=== PATIENT | female | born 1945 | race Caucasian/White ===

== ENCOUNTER 2020-12-19 15:27 | Emergency (ER) | payer MEDICARE ==
[~2020-12-19] VITALS: Ht 157.5 cm; Wt 84.8 kg
[~2020-12-19 15:27] MED LIST: CHOL10002; CLOB.05TC; OXYB5ER PO; SOLI5; VARE1
[2020-12-19] MEDS ORDERED: ELIQUIS5 M3 PO (15:38)
[2020-12-19] MEDS ORDERED: K-Dur10 MEQ PO (15:38)
[2020-12-19] MEDS ORDERED: FUROSEMIDE20 MG PO (15:38)
[2020-12-19 16:00] LABS: BASOPHILS ABSOLUTE AUTO 0.13 K/mm3 (0.00-0.23); BASOPHILS PERCENT AUTO 1 % (0-2); EOSINOPHILS ABSOLUTE AUTO 0.26 K/mm3 (0.00-0.68); EOSINOPHILS PERCENT AUTO 2 % (0-6); Hematocrit 38.2 % (33.0-51.0); Hemoglobin 11.6 g/dL (11.5-16.0); IMMATURE GRAN ABSOLUTE AUTO 0.04 K/mm3 (0.00-0.10); IMMATURE GRAN PERCENT AUTO 0 % (0-1); LYMPHOCYTES ABSOLUTE AUTO 1.62 K/mm3 (0.84-5.20); LYMPHOCYTES PERCENT AUTO 15 % (21-46); MONOCYTES ABSOLUTE AUTO 0.85 K/mm3 (0.16-1.47); MONOCYTES PERCENT AUTO 8 % (4-13); Mean Corpuscular HGB 23.8 pg (26.0-34.0); Mean Corpuscular HGB Conc 30.4 g/dL (31.5-36.5); Mean Corpuscular Volume 78 fL (80-100); Mean Platelet Volume 10.9 fL (9.1-12.4); NEUTROPHILS ABSOLUTE AUTO 7.88 K/mm3 (1.96-9.15); NEUTROPHILS PERCENT AUTO 73 % (41-73); Platelet Count 447 K/mm3 (150-400); RDW Coefficient Variation 15.8 % (11.7-14.2); RDW Standard Deviation 44.7 fL (35.1-46.3); Red Blood Cell Count 4.88 M/mm3 (3.80-5.20); White Blood Cell Count 10.78 K/mm3 (4.00-11.30)
[2020-12-19 16:17] LABS: Alanine Aminotransfer (ALT/SGP 19 U/L (12-78); Albumin, Blood 3.3 g/dL (3.4-5.0); Albumin/Globulin Ratio 0.8 (0.8-1.8); Alk Phos 80 U/L (50-136); Anion Gap 9 mmol/L (6-16); Aspartate Aminotrans (AST/SGOT 19 U/L (12-37); Bilirubin, Total 1.2 mg/dL (0.1-1.0); Blood Urea Nitrogen 15 mg/dL (8-24); Bun/Creatinine Ratio 17.6 (12.0-20.0); CO2, Blood 29 mmol/L (21-32); Calcium, Blood 9.2 mg/dL (8.5-10.1); Chloride, Blood 103 mmol/L (98-108); Creatinine, Blood 0.85 mg/dL (0.40-1.00); Globulin, Blood 3.9 g/dL (2.2-4.0); Glomerular Filtration Rate >60 (60-); Glucose, Blood 111 mg/dL (70-99); Potassium, Blood 3.5 mmol/L (3.5-5.5); Sodium, Blood 141 mmol/L (136-145); Total Protein, Blood 7.2 g/dL (6.4-8.2); Troponin I 0.384 ng/mL (0.000-0.040)
== END 2020-12-19 21:00 | disposition short-term general hospital (02) ==
LOC: ER 15:27
PROVIDERS: Physician Assistant
DX: I35.0 Nonrheumatic aortic (valve) stenosis (principal); I50.9 Heart failure, unspecified; I26.99 Other pulmonary embolism without acute cor pulmonale; R79.89 Other specified abnormal findings of blood chemistry; Z79.01 Long term (current) use of anticoagulants; Z79.899 Other long term (current) drug therapy; I26.94 Multiple subsegmental thrombotic pulmonary emboli without acute cor pulmonale; R06.02 Shortness of breath; I27.20 Pulmonary hypertension, unspecified; R93.1 Abnormal findings on diagnostic imaging of heart and coronary circulation
CPT/HCPCS: 71046; 80053; 83880; 84484; 85025; 93005; 93010; 96374; 99285-25; A9270; C8929; J1940; Q9957

== ENCOUNTER 2021-01-07 15:47 | Inpatient (IN) | payer MEDICARE ==
[~2021-01-07] VITALS: Ht 157.5 cm; Wt 86.7 kg
[~2021-01-07 15:47] MED LIST changes: +ELIQUIS5 M3 PO; +FUROSEMIDE20 MG PO; +K-Dur10 MEQ PO
[2021-01-07 16:30] LABS: BASOPHILS ABSOLUTE AUTO 0.16 K/mm3 (0.00-0.23); BASOPHILS PERCENT AUTO 1 % (0-2); EOSINOPHILS ABSOLUTE AUTO 0.37 K/mm3 (0.00-0.68); EOSINOPHILS PERCENT AUTO 3 % (0-6); Hematocrit 39.5 % (33.0-51.0); Hemoglobin 11.9 g/dL (11.5-16.0); IMMATURE GRAN ABSOLUTE AUTO 0.07 K/mm3 (0.00-0.10); IMMATURE GRAN PERCENT AUTO 1 % (0-1); LYMPHOCYTES ABSOLUTE AUTO 1.42 K/mm3 (0.84-5.20); LYMPHOCYTES PERCENT AUTO 10 % (21-46); MONOCYTES ABSOLUTE AUTO 1.22 K/mm3 (0.16-1.47); MONOCYTES PERCENT AUTO 9 % (4-13); Mean Corpuscular HGB 23.4 pg (26.0-34.0); Mean Corpuscular HGB Conc 30.1 g/dL (31.5-36.5); Mean Corpuscular Volume 78 fL (80-100); Mean Platelet Volume 10.7 fL (9.1-12.4); NEUTROPHILS ABSOLUTE AUTO 11.16 K/mm3 (1.96-9.15); NEUTROPHILS PERCENT AUTO 77 % (41-73); Platelet Count 447 K/mm3 (150-400); RDW Coefficient Variation 16.1 % (11.7-14.2); RDW Standard Deviation 45.2 fL (35.1-46.3); Red Blood Cell Count 5.09 M/mm3 (3.80-5.20)
[2021-01-07 17:00] LABS: Albumin, Blood 3.3 g/dL (3.4-5.0); Albumin/Globulin Ratio 0.8 (0.8-1.8); Bilirubin, Total 1.5 mg/dL (0.1-1.0); Bun/Creatinine Ratio 25.5 (12.0-20.0); Calcium, Blood 9.5 mg/dL (8.5-10.1); Creatinine, Blood 1.06 mg/dL (0.40-1.00); Globulin, Blood 4.1 g/dL (2.2-4.0); Potassium, Blood 3.8 mmol/L (3.5-5.5); Total Protein, Blood 7.4 g/dL (6.4-8.2); Troponin I 0.265 ng/mL (0.000-0.040)
[2021-01-07] MEDS ORDERED: METOPROLOL TART25 MG PO (17:34)
[2021-01-07] MEDS ORDERED: ATOR40TA PO (17:34)
[2021-01-07 19:03] LABS: Influenza A, PCR NEGATIVE (NEGATIVE); Influenza B, PCR NEGATIVE (NEGATIVE); Resp Syncytial Virus, PCR NEGATIVE (NEGATIVE); SARS-Cov-2 (COVID-19) PCR, MMC NEGATIVE (NEGATIVE)
[2021-01-07] MEDS ORDERED: Aspir 8181 MG PO (23:35)
[2021-01-07] MEDS ORDERED: THERA-D2000 UNIT PO (23:36)
[2021-01-08 03:10] LABS: BASOPHILS ABSOLUTE AUTO 0.16 K/mm3 (0.00-0.23); BASOPHILS PERCENT AUTO 1 % (0-2); EOSINOPHILS ABSOLUTE AUTO 0.48 K/mm3 (0.00-0.68); EOSINOPHILS PERCENT AUTO 3 % (0-6); Hematocrit 36.2 % (33.0-51.0); Hemoglobin 11.2 g/dL (11.5-16.0); IMMATURE GRAN ABSOLUTE AUTO 0.07 K/mm3 (0.00-0.10); IMMATURE GRAN PERCENT AUTO 0 % (0-1); LYMPHOCYTES ABSOLUTE AUTO 1.85 K/mm3 (0.84-5.20); LYMPHOCYTES PERCENT AUTO 12 % (21-46); MONOCYTES ABSOLUTE AUTO 1.44 K/mm3 (0.16-1.47); MONOCYTES PERCENT AUTO 9 % (4-13); Mean Corpuscular HGB 23.7 pg (26.0-34.0); Mean Corpuscular HGB Conc 30.9 g/dL (31.5-36.5); Mean Corpuscular Volume 77 fL (80-100); Mean Platelet Volume 10.6 fL (9.1-12.4); NEUTROPHILS ABSOLUTE AUTO 12.03 K/mm3 (1.96-9.15); NEUTROPHILS PERCENT AUTO 75 % (41-73); Platelet Count 401 K/mm3 (150-400); RDW Coefficient Variation 16.1 % (11.7-14.2); RDW Standard Deviation 44.4 fL (35.1-46.3); Red Blood Cell Count 4.73 M/mm3 (3.80-5.20); White Blood Cell Count 16.03 K/mm3 (4.00-11.30)
[2021-01-08 03:29] LABS: Bun/Creatinine Ratio 25.1 (12.0-20.0); Potassium, Blood 3.5 mmol/L (3.5-5.5); Troponin I 0.283 ng/mL (0.000-0.040)
--- NOTE | 2021-01-08 06:10 | NUR ---
SHIFT SUMMARY PT DID NOT SLEEP WELL, REPORTS DISCOMFORT WITH BIPAP R/T DRY MOUTH AND REQUIRES FREQUENT BREAKS FOR SIPS OF WATER. PT REMAINS ORIENTED x4. BIPAP 10/7 FIO2 45%, REQUESTED BREAK FROM BIPAP THIS AM AND IS CURRENTLY ON 6L PER NC, WOB DECREASED AND PT APPEARS RELAXED AND COMFORTABLE ON NC. MONITOR SHOWS SINUS RHYTHM WITH BBB, HR 90'S-105, BP SOFT WITH MAPS> 60. PT TOLERATING PO INTAKE, NO BM THIS SHIFT. FOELY IN PLACE DRAINING CLEAR YELLOW URINE. CALL LIGHT WITHIN REACH, PT USING APPROPRIATELY.
--- NOTE | 2021-01-08 07:30 | NUR ---
IN TO SEE PATIENT, PATIENT ALERT, ORIENTED, CONVERSING WELL WITH ANSWERING ALL QUESTIONS, WORKING HARD AT BREATHING. BLOOD PRESSURE SOFT. LASIX GTT ON STANDBY PER . COMPRESSION STOCKINGS ON LOWER LEGS, 2+ EDEMA, PT UNDERSTANDS THE WORDS EXPLAINING TO HER. STATES THAT HER NEEDS TO HEAR THIS AND WILL CALL HIM WHEN THINGS ARE FINALIZED. CHONG DRAINING TO GRAVITY, NS AT KVO.
[2021-01-08 09:08] LABS: International Normalized Ratio 1.36; Prothrombin Time Results 14.3 Sec (9.7-11.5)
--- NOTE | 2021-01-08 09:30 | NUR ---
HEPARIN GTT SET UP AND STARTED PER PHARMACY AFTER BLOOD DRAW AND CONFIGURATION. PT ON BIPAP, TRYING TO REST. PT UNDERSTANDS THAT SHE WILL BE MOVING TO ANOTHER FACILITY WHEN THE BED BECOMES AVAILABLE. AND SON AWARE AND ARE COMING TO SEE THE PATIENT. OK'D PER SUPERVISORS.
--- NOTE | 2021-01-08 10:50 | NUR ---
AND SON HERE TO SEE PATIENT PRIOR TO TRANSFER, PT OFF BIPAP TO TALK WITH THEM, ON O2 @ 6L. TOLERATING WELL. QUESTIONS ANSWERED.
[2021-01-08 11:33] LABS: Source, Urine Clean Catch
[2021-01-08 11:41] LABS: Bilirubin, Urine Neg (Neg); Blood, Urine 5+ (Neg); Glucose Qualitative, Urine Neg (Neg); Ketones, Urine Neg (Neg); Leukocyte Esterase, Urine 3+ (Neg); Nitrite, Urine Neg (Neg); Protein, Urine 2+ (Neg); Specific Gravity, Urine 1.015 (1.003-1.022); Urobilinogen, Urine NORM (Normal)
[2021-01-08 11:48] LABS: Appearance, Urine Cloudy (Clear); Bacteria Mod /hpf; Color, Urine Yellow (P-Yellow); Granular Casts 0-2 /lpf (0); Hyaline Casts 0-2 /lpf (0-2); Mucus Light (0-Heavy); Red Blood Cells, Urine 50-100 /hpf (0-2); Squamous Epithelial Cells Few /hpf (Few); White Blood Cells, Urine 50-100 /hpf (0-5)
--- NOTE | 2021-01-08 12:12 | NUR ---
SON AIDEN JUST CALLED AND ASKED ABOUT TRANSFERRING HIS MOTHER TO [facility], HE FEELS THAT JUST "SITTING HERE WAITING FOR A BED IS RIDICULOUS" AND HIS MOTHERS'S SISTER WAS TAKEN TO [facility] AND HAD A LIFE SAVING PROCEDURE. I LET HIM KNOW THAT IT WAS 'S DECISION TO SEND HER AND CONNECT WITH THE PROVIDERS THERE IN [facility]. HE ASKED TO SPEAK WITH HER. HER OFFICE NUMBER WAS GIVEN TO HIM.
--- NOTE | 2021-01-08 13:37 | NUR ---
TALKING WITH HANNY IN REGARDS TO HER SON'S REQUEST. SHE IS NOT WANTING TO GO "ALL THE WAY" TO [place], TO HAVE TO REDO ALL HER TESTS, HAVE NEW PEOPLE GET TO KNOW HER, ETC. SHE CALLED HER SON TO EXPRESS THIS AND HE PROMPTLY CALLED ME UPSET THAT HIS MOTHER KNEW WHAT WAS GOING ON. I EXPLAINED THAT HAD CALLED AND ASKED ME ABOUT THE SITUATION AND WHAT HANNY'S THOUGHTS WERE. HE THEN EXPRESSED FURTHER FRUSTRATION THAT WE ARE SITTING ON A TIME BOMB AND HER LIFE DEPENDS ON IT. I TRIED TO EXPLAIN HOW THE TRANSFER PROCESS WORKS AND THAT WE ARE WORKING HARD ON GETTING HER TRANSFERRED OUT FOR TREATMENT, BUT WE CANNOT DO ANYTHING ABOUT FULL HOSPITALS. HE THEN ABRUPTLY HUNG UP WAS CALLING HIM BACK.
--- NOTE | 2021-01-08 18:37 | NUR ---
HANNY IS FINALLY SLEEPING, ON BIPAP AT 10/5 30%. SHE HAS SPLIT HER DAY BETWEEN THIS AND 6L/NC. SHE IS TIRING MORE QUICKLY AND STRUGGLING FOR EACH BREATH. HER SBP IS HOVERING IN THE HI 70'S-90'S. MAP IS STAYING >60, AND DR. MOE AWARE, WANT TO BE MADE AWARE IF THE MAP CONSISTENTLY DROPS BELOW 60. DR. HALL STATED THAT SHE GOT A CONFIRMATION THAT A ROOM WOULD BE AVAILABLE IN 24 HOURS, 48 HOURS MAX. THE OPTION OF GOING TO [facility] IS STILL ON THE TABLE, BUT THEY ARE FULL WELL. DR. HALL HAS COMMUNICATED THIS WITH THE FAMILY AND THEY WILL LET HER KNOW IF THEY CHOOSE TO CHANGE THE PLAN. HANNY CONTINUES TO BE VERY PLEASANT ALTHOUGH SHORT OF BREATH. SHE HAS DARK YELLOW/MARTHA RETURN TO HER CHONG, FAIR APPETITE. SHE ASKED FOR SOUP AND HALF SANDWICH AT LUNCH, ATE WELL AND THEN ASKED FOR BROTH FOR DINNER. SHE HAS ASKED FOR LITTLE POSITION CHANGE THROUGHOUT THE DAY, I HAVE DISCUSSED WITH HER THAT WE NEED TO TRY LITTLE THINGS TO KEEP HER OFF HER BUTT, SITTING UP IS HER PREFERRED POSITION. COMPRESSION STOCKINGS REMAIN IN PLACE. HER RASHES OVER HER PANNUS AND UNDER HER BREASTS REMAIN TENDER AND UNCHANGED AFTER BOTH DOSES OF MEDICATION. WILL REPORT OFF TO NEXT SHIFT WHEN AVAILABLE.
--- NOTE | 2021-01-08 20:40 | NUR ---
ASSUMPTION OF CARE PT AWAKE IN BED, ORIENTED TO SELF, EVENT, LOCATION AND FOLLOWING COMMANDS, PT UNDERSTANDS PLAN TO TRANSFER TO [facility] IN [place], OR. PT ON BREAK FROM BIPAP ON 6L PER NC, BIPAP SETTINGS 10/5 AND 30% FIO2, ENCOURAGED PT TO USE BIPAP MUCH TOLERATED, PT VERBALIZES UNDERSTANDING OF NEED FOR BIPAP, BREATHING IS UNLABORED AT THIS TIME, DYSPNEA NOTED WITH MINIMAL EXERTION. MONITOR SHOWS SINUS RHYTHM WITH PVC'S, HR 90'S-110, BP STABLE WITH SBP> 100 AND MAPS> 65. HPEARIN INFUSING @ 15u/kg/hr, BASED ON 65kg, HEPARIN MANAGING. REDDENED AREA TO BIALT BREAST AND ASTER AREA IMPROVING IN SOME PLACES, NYSTATIN CREAM APPLIED ORDERED. PT DENIES GI ISSUES, TOLERATING PO INTAKE. CHONG IN PLACE AND DRAINING DARK YELLOW URINE WITH RED STREAKS. PT REPOSITIONS SELF, FAN PLACED AT BEDSIDE. CALL LIGHT WITHIN REACH, PT USING APPROPRIATELY.
--- NOTE | 2021-01-08 22:52 | NUR ---
REPORT CALLED TO GINA ZARAGOZA AT [facility]
--- NOTE | 2021-01-08 23:13 | NUR ---
REPORT GIVEN TO JENNIFER MARTINES ATMOSPHERIC CHEMIST, PT LEFT ICU @ 9321
== END 2021-01-08 23:16 | disposition short-term general hospital (02) | DRG 291 ==
LOC: ER 15:47 → ICUW 19:00 → ERHOLD 19:00 → ICUW 22:15
PROVIDERS: Emergency Medicine; Internal Medicine Cardiovascular Disease; Nurse Practitioner Acute Care; Pharmacist; Physician Assistant; ADMIT Internal Medicine
DX: I50.21 Acute systolic (congestive) heart failure (principal); J96.91 Respiratory failure, unspecified with hypoxia; I27.82 Chronic pulmonary embolism; Z79.01 Long term (current) use of anticoagulants; J44.9 Chronic obstructive pulmonary disease, unspecified; E78.5 Hyperlipidemia, unspecified; Z87.891 Personal history of nicotine dependence; Z99.81 Dependence on supplemental oxygen
CPT/HCPCS: 0241U; 36415; 51702; 71046; 80048; 80053; 81001; 83605; 83880; 84484; 85025; 85610; 85730; 87040; 93005; 93010; 94660; 96374; 99285-25; A9270; J1644; J1940; J3475; J7050

== ENCOUNTER 2021-02-06 06:00 | Day surgery (SDC) | payer MEDICARE, OTHER ==
[~2021-02-06 06:00] MED LIST changes: +ATOR40TA PO; +Aspir 8181 MG PO; +METOPROLOL TART25 MG PO; +THERA-D2000 UNIT PO
[2021-02-06] MEDS ORDERED: METOPROLOL SUCC25 MG PO (08:07)
--- NOTE | 2021-02-06 08:10 | NUR ---
THREE SEPERATE 200J SYNCHRONIZED SHOCKS DELIVERED BY DR HALL; UNABLE TO CARDIOVERT PT TO SUSTAINED NORMAL SINUS RHYTHM. PT TOLERATED WELL. MILA KEEN WAS IN ROOM DURING CARDIOVERSION.
[2021-02-06] MEDS ORDERED: AMIODARONE HCL100 M3 PO (08:35)
--- NOTE | 2021-02-06 09:41 | NUR ---
DISCHARGE INSTRUCTIONS WERE REVIEWED AND ALL QUESTIONS ANSWERED. 20 G IV WAS REMOVED FROM LEFT WRIST WITH INTACT CANNULA. PT AMBULATED TO BR TO VOID. PT ESCORTED OUT VIA WHEELCHAIR ESCORT.
== END 2021-02-06 22:44 | disposition home or self-care (01) ==
LOC: MHTC 06:00
DX: I48.91 Unspecified atrial fibrillation (principal); I48.92 Unspecified atrial flutter; E78.5 Hyperlipidemia, unspecified; J44.9 Chronic obstructive pulmonary disease, unspecified; I50.22 Chronic systolic (congestive) heart failure; I25.10 Atherosclerotic heart disease of native coronary artery without angina pectoris; Z66 Do not resuscitate; Z87.891 Personal history of nicotine dependence; Z79.01 Long term (current) use of anticoagulants
CPT/HCPCS: 92960; 93005; 93010; 99152; J2250; J2310; J3010; J7030

== ENCOUNTER 2021-03-28 18:34 | Observation (INO) | payer MEDICARE, OTHER ==
[~2021-03-28] VITALS: Ht 157.5 cm; Wt 83.0 kg
[~2021-03-28 18:34] MED LIST changes: +AMIODARONE HCL100 M3 PO; +METOPROLOL SUCC25 MG PO
[2021-03-28 19:06] LABS: BASOPHILS ABSOLUTE AUTO 0.08 K/mm3 (0.00-0.23); BASOPHILS PERCENT AUTO 1 % (0-2); EOSINOPHILS ABSOLUTE AUTO 0.19 K/mm3 (0.00-0.68); EOSINOPHILS PERCENT AUTO 2 % (0-6); Hematocrit 39.9 % (33.0-51.0); Hemoglobin 12.9 g/dL (11.5-16.0); IMMATURE GRAN ABSOLUTE AUTO 0.05 K/mm3 (0.00-0.10); IMMATURE GRAN PERCENT AUTO 1 % (0-1); LYMPHOCYTES ABSOLUTE AUTO 0.62 K/mm3 (0.84-5.20); LYMPHOCYTES PERCENT AUTO 6 % (21-46); MONOCYTES ABSOLUTE AUTO 0.97 K/mm3 (0.16-1.47); MONOCYTES PERCENT AUTO 10 % (4-13); Mean Corpuscular HGB 25.3 pg (26.0-34.0); Mean Corpuscular HGB Conc 32.3 g/dL (31.5-36.5); Mean Corpuscular Volume 78 fL (80-100); Mean Platelet Volume 10.2 fL (9.1-12.4); NEUTROPHILS ABSOLUTE AUTO 8.21 K/mm3 (1.96-9.15); NEUTROPHILS PERCENT AUTO 81 % (41-73); Platelet Count 242 K/mm3 (150-400); RDW Coefficient Variation 19.3 % (11.7-14.2); RDW Standard Deviation 54.7 fL (35.1-46.3); White Blood Cell Count 10.12 K/mm3 (4.00-11.30)
[2021-03-28 19:34] LABS: Alanine Aminotransfer (ALT/SGP 26 U/L (12-78); Albumin, Blood 3.2 g/dL (3.4-5.0); Albumin/Globulin Ratio 0.7 (0.8-1.8); Alk Phos 97 U/L (50-136); Anion Gap 4 mmol/L (6-16); Aspartate Aminotrans (AST/SGOT 38 U/L (12-37); Blood Urea Nitrogen 17 mg/dL (8-24); Bun/Creatinine Ratio 19.5 (12.0-20.0); CO2, Blood 27 mmol/L (21-32); Chloride, Blood 103 mmol/L (98-108); Creatinine, Blood 0.87 mg/dL (0.40-1.00); Globulin, Blood 4.3 g/dL (2.2-4.0); Glomerular Filtration Rate >60 (60-); Glucose, Blood 104 mg/dL (70-99); Potassium, Blood 4.1 mmol/L (3.5-5.5); Sodium, Blood 134 mmol/L (136-145); Total Protein, Blood 7.5 g/dL (6.4-8.2); Troponin I 0.142 ng/mL (0.000-0.040)
[2021-03-28] MEDS ORDERED: CARVEDILOL6.25 MG PO (21:25)
[2021-03-28] MEDS ORDERED: WOMEN MULTIVIT1 EAC1 PO (21:38)
[2021-03-28 22:17] LABS: Bilirubin, Urine Neg (Neg); Blood, Urine 5+ (Neg); Glucose Qualitative, Urine Neg (Neg); Ketones, Urine Neg (Neg); Leukocyte Esterase, Urine 1+ (Neg); Nitrite, Urine Neg (Neg); Protein, Urine 2+ (Neg); Urobilinogen, Urine NORM (Normal)
[2021-03-28 22:19] LABS: Appearance, Urine Hazy (Clear); Color, Urine Yellow (P-Yellow)
[2021-03-28 22:34] LABS: Amorphous Light (0-Heavy); Bacteria Rare /hpf; Red Blood Cells, Urine TNTC /hpf (0-2); Squamous Epithelial Cells Rare /hpf (Few)
--- NOTE | 2021-03-29 03:47 | NUR ---
SHIFT SUMMARY RECIEVED REPORT FROM CAMI RN, ED @ 7251. ARRIVED TO MEDICAL UNIT VIA STRETCHER @ 0669. MINIMAL ASSISTANCE REQUIRED WITH TRANSFER TO BED FROM [facility]. ORIENTED TO ROOM AND CALL SYSTEM. A/O, ABLE TO MAKE NEEDS KNOWN. COOPERATIVE WITH CARE. CALLS AND ANSWERS QUESTIONS APPROPRIATELY. NO C/O PAIN/DISCOMFORT. RESPIRATIONS TACHYPNEIC WITH PURSED LIP BREATHING AT TIMES. WHEN ASKED IF SOB; STATES NO. WEARS ATTENDS; STATES NO INCONTINENCE. HAS BEEN UP TO BSC FREQUENTLY SINCE ARRIVAL. TELE RUNNING AFLUTTER IN 80s PER CRM ARCHITECT. APPEARED TO REST VERY LITTLE SINCE ARRIVAL. NO ACUTE CHANGES NOTED SINCE ARRIVAL. BED REMAINS IN LOWEST POSITION; ALARM ON. CALL LIGHT AND BELONGINGS WITHIN REACH. CONTINUE WITH CURRENT PLAN OF CARE. REPORT TO JESSICA ZARAGOZA.
[2021-03-29] MEDS ORDERED: ACET325 PO (12:35)
--- NOTE | 2021-03-29 14:04 | NUR ---
PT DISCHARGED @ APPROX 1400 VIA WHEELCHAIR BY DICTAPHONE TYPIST. PT WAS ACCOMPANIED BY HER SONS DURING DISCHARGE INSTRUCTIONS. ANY QUESTIONS DURING THIS TIME WERE ANSWERED. PT TO FOLLOW UP WITH PCP AND CAN WASHER. STRONGLY ENCOURAGED TO ASSESS BP BEFORE TAKING MEDICATIONS. IV SITES WERE REMOVED AND APPEARED WNL. PT ABLE TO DRESS HERSELF WITHIN MINIMAL ASSISTANCE AND AMBULATE TO WHEELCHAIR. PT STATED SHE HAD ALL OF HER BELONGINGS. NEEDED RX FAXED TO PHARMACY OF PT CHOICE.
== END 2021-03-29 14:05 | disposition home health service (06) ==
LOC: ER 18:34 → MEDS 18:35 → ENPENDDIS 03-29 11:36 → MEDS 03-29 14:05
PROVIDERS: Emergency Medicine; ADMIT Family Medicine
DX: G45.9 Transient cerebral ischemic attack, unspecified (principal); I95.9 Hypotension, unspecified; I48.91 Unspecified atrial fibrillation; I65.23 Occlusion and stenosis of bilateral carotid arteries; E78.5 Hyperlipidemia, unspecified; J44.9 Chronic obstructive pulmonary disease, unspecified; I50.22 Chronic systolic (congestive) heart failure; Z87.891 Personal history of nicotine dependence; Z79.01 Long term (current) use of anticoagulants; Z79.82 Long term (current) use of aspirin; Z86.711 Personal history of pulmonary embolism; Z85.3 Personal history of malignant neoplasm of breast; Z95.2 Presence of prosthetic heart valve
CPT/HCPCS: 36415; 70450; 71045; 80053; 81001; 83880; 84484; 85025; 87086; 93005; 93010; 93880; 97110; 97162; 97165; 97535; 99285-25; A9270; G0378

== ENCOUNTER 2021-11-05 17:29 | Inpatient (IN) | payer MEDICARE, OTHER ==
[~2021-11-05] VITALS: Ht 162.6 cm; Wt 95.8 kg
[~2021-11-05 17:29] MED LIST changes: +ACET325 PO; +CARVEDILOL6.25 MG PO; +WOMEN MULTIVIT1 EAC1 PO
[2021-11-05 18:45] LABS: BASOPHILS ABSOLUTE AUTO 0.07 K/mm3 (0.00-0.23); BASOPHILS PERCENT AUTO 1 % (0-2); EOSINOPHILS PERCENT AUTO 1 % (0-6); IMMATURE GRAN ABSOLUTE AUTO 0.13 K/mm3 (0.00-0.10); IMMATURE GRAN PERCENT AUTO 1 % (0-1); LYMPHOCYTES ABSOLUTE AUTO 1.89 K/mm3 (0.84-5.20); LYMPHOCYTES PERCENT AUTO 14 % (21-46); MONOCYTES ABSOLUTE AUTO 1.03 K/mm3 (0.16-1.47); MONOCYTES PERCENT AUTO 7 % (4-13); Mean Corpuscular HGB Conc 32.6 g/dL (31.5-36.5); Mean Corpuscular Volume 86 fL (80-100); Mean Platelet Volume 10.6 fL (9.1-12.4); NEUTROPHILS ABSOLUTE AUTO 10.76 K/mm3 (1.96-9.15); NEUTROPHILS PERCENT AUTO 77 % (41-73); NRBC ABSOLUTE 0.02 K/mm3 (0.00-0.02); NRBC Auto 0.1 /100 WBC (0.0-0.2); Platelet Count 342 K/mm3 (150-400); RDW Coefficient Variation 14.7 % (11.7-14.2); RDW Standard Deviation 45.1 fL (35.1-46.3); White Blood Cell Count 13.98 K/mm3 (4.00-11.30)
[2021-11-05 18:50] LABS: Hematocrit 17.2 % (33.0-51.0); Hemoglobin 5.6 g/dL (11.5-16.0)
[2021-11-05 18:55] LABS: Albumin, Blood 2.8 g/dL (3.4-5.0); Albumin/Globulin Ratio 0.9 (0.8-1.8); Bilirubin, Total 0.7 mg/dL (0.1-1.0); Bun/Creatinine Ratio 20.5 (12.0-20.0); Calcium, Blood 8.4 mg/dL (8.5-10.1); Creatinine, Blood 1.17 mg/dL (0.40-1.00); Potassium, Blood 4.5 mmol/L (3.5-5.5); Total Protein, Blood 5.8 g/dL (6.4-8.2)
[2021-11-05 21:39] LABS: International Normalized Ratio 1.19; Prothrombin Time Results 12.4 Sec (9.7-11.5)
--- NOTE | 2021-11-06 01:00 | NUR ---
Assumed care. Report received from ED nurse. PT arrived in ICU at 2126. Pt alert and oriented, vital signs stable, on room air. One unit of PRBCs transfusing at time of arrival. IV access in L/AC and L/forearm. No acute needs noted at time of arrival, will continue to monitor.
[2021-11-06 02:47] LABS: BASOPHILS ABSOLUTE AUTO 0.06 K/mm3 (0.00-0.23); BASOPHILS PERCENT AUTO 0 % (0-2); EOSINOPHILS ABSOLUTE AUTO 0.16 K/mm3 (0.00-0.68); EOSINOPHILS PERCENT AUTO 1 % (0-6); Hematocrit 20.8 % (33.0-51.0); IMMATURE GRAN ABSOLUTE AUTO 0.09 K/mm3 (0.00-0.10); IMMATURE GRAN PERCENT AUTO 1 % (0-1); LYMPHOCYTES ABSOLUTE AUTO 2.89 K/mm3 (0.84-5.20); LYMPHOCYTES PERCENT AUTO 22 % (21-46); MONOCYTES ABSOLUTE AUTO 1.42 K/mm3 (0.16-1.47); MONOCYTES PERCENT AUTO 11 % (4-13); Mean Corpuscular HGB Conc 33.7 g/dL (31.5-36.5); Mean Corpuscular Volume 83 fL (80-100); Mean Platelet Volume 10.3 fL (9.1-12.4); NEUTROPHILS ABSOLUTE AUTO 8.72 K/mm3 (1.96-9.15); NEUTROPHILS PERCENT AUTO 65 % (41-73); NRBC ABSOLUTE 0.03 K/mm3 (0.00-0.02); NRBC Auto 0.2 /100 WBC (0.0-0.2); Platelet Count 253 K/mm3 (150-400); RDW Coefficient Variation 14.5 % (11.7-14.2); RDW Standard Deviation 43.7 fL (35.1-46.3); White Blood Cell Count 13.34 K/mm3 (4.00-11.30)
[2021-11-06 03:03] LABS: Bun/Creatinine Ratio 21.3 (12.0-20.0); Calcium, Blood 7.8 mg/dL (8.5-10.1); Creatinine, Blood 0.98 mg/dL (0.40-1.00); Potassium, Blood 4.2 mmol/L (3.5-5.5)
--- NOTE | 2021-11-06 06:33 | NUR ---
Shift summary. Pt rested in bed throughout shift. Still on room air, stable vital signs. Pt up to commode once during shift, able to stand and use walker to transfer. See shift assessment for further details. Will continue to monitor and report off to dayshift RN.
--- NOTE | 2021-11-06 07:49 | NUR ---
ASSUMED CARE PT. ALERT AND ORIENTED THIS AM. DENIES ANY CHEST PAIN AT THIS TIME, DENIES SOB. DENIES ANY ABD. PAIN. PT. VSS THIS AM. LAB IN TO REDRAW H&H. PER PT. NO BMS SINCE COMING TO THE HOSPITAL YESTERDAY. PT. ABLE TO REPOSITION SELF INDEPENDENTLY IN BED, CALL LIGHT IN REACH, BED IN LOW POSIITON. PT. RESTING QUIETLY IN BED. YULISA.
[2021-11-06 07:55] LABS: Hematocrit 20.4 % (33.0-51.0); Hemoglobin 6.8 g/dL (11.5-16.0)
--- NOTE | 2021-11-06 12:33 | NUR ---
PT SITTING UP IN BEDSIDE CHAIR. BLOOD PRODUCT INFUSION IS COMPLETE. ORDER TO REDRAW H&H PLACED PER ORDER. PLANS FOR PT TO BE SCOPED THIS PM.
[2021-11-06 13:38] LABS: Influenza A, PCR NEGATIVE (NEGATIVE); Influenza B, PCR NEGATIVE (NEGATIVE); Resp Syncytial Virus, PCR NEGATIVE (NEGATIVE); SARS-Cov-2 (COVID-19) PCR, MMC NEGATIVE (NEGATIVE)
--- NOTE | 2021-11-06 14:43 | NUR ---
Upon receiving an radiation control technician for spiritual care, I visit patient. Patient tells me about her spouse and his struggles with COPD and about her 2 sons who both live in [place]. Patient feels loved and supported. She shares about her concerns and fears with what is happening with her bleed and she shares about her [employer] Religious belief system. Her stevo is part of her strength in challenging situations. I proavide therapeutic listening and prayer. Patient responds well and shows signs of increased peace. I will continue to remain available to patient and family.
[2021-11-06 15:18] LABS: Hematocrit 25.2 % (33.0-51.0); Hemoglobin 8.5 g/dL (11.5-16.0)
--- NOTE | 2021-11-06 16:33 | NUR ---
Patient up to Ambulate independently. Gait steady. History, Chart, Medications and Allergies reviewed before start of procedure.Lungs clear T/O to Auscultation. Patient confirms NPO status and agrees with scheduled surgery.
--- NOTE | 2021-11-06 16:36 | NUR ---
PT. TO DAY SURGERY FOR SCOPE AT THIS TIME, PT UPDATED PER PT. REQUEST.
--- NOTE | 2021-11-06 16:43 | NUR ---
11/06/21 0148 Riki Rodríguez See Anesthesia record OF DR SEPULVEDA. Bite Block Placed. Patient to ENDO 1. History, Chart, Medications and Allergies reviewed before start of procedure. MONITOR INTACT WITH CONTINUOUS PULSE OXIMETRY AND INTERMITTENT BP. O2 VIA N/C INTACT THROUGHOUT SEDATION/PROCEDURE.
--- NOTE | 2021-11-06 18:26 | NUR ---
SHIFT SUMMARY PT. UP FREQUENTLY TO VOID AND HAVE LOOSE STOOL WITH RED CLOTS. PT. TAKEN FOR UPPER SCOPE THIS PM AND TO HAVE BOWEL PREP TOMORROW FOR COLONOSCOPY. PT PROVIDED WITH CLEAR LIQUID DIET PER ORDER THIS PM. REMAINS ALERT AND ORIENTED, STAND BY ASSIST UP TO BEDSIDE TOILET T/O THE DAY. VSS
[2021-11-07 03:12] LABS: Hematocrit 23.8 % (33.0-51.0); Mean Corpuscular HGB 27.9 pg (26.0-34.0); Mean Corpuscular HGB Conc 33.6 g/dL (31.5-36.5); Mean Corpuscular Volume 83 fL (80-100); Mean Platelet Volume 10.3 fL (9.1-12.4); NRBC ABSOLUTE 0.04 K/mm3 (0.00-0.02); NRBC Auto 0.3 /100 WBC (0.0-0.2); Platelet Count 232 K/mm3 (150-400); RDW Standard Deviation 44.8 fL (35.1-46.3); Red Blood Cell Count 2.87 M/mm3 (3.80-5.20); White Blood Cell Count 13.55 K/mm3 (4.00-11.30)
[2021-11-07 03:29] LABS: Bun/Creatinine Ratio 15.5 (12.0-20.0); Calcium, Blood 7.8 mg/dL (8.5-10.1); Creatinine, Blood 0.97 mg/dL (0.40-1.00); Potassium, Blood 3.5 mmol/L (3.5-5.5)
--- NOTE | 2021-11-07 06:06 | NUR ---
SHIFT SUMMERY PT IS ALERT AND ORIENTED; VS WNL OVERNIGHT. H AND H REMAINS STABLE, NO BOWEL MOVEMENTS OVERNIGHT.
--- NOTE | 2021-11-07 07:30 | NUR ---
ASSUMED CARE THIS AM PT REMAINS ALERT AND ORIENTED IN ROOM. UP WITH STAND BY ASSIST TO BEDSIDE TOILET TO VOID. NO STOOL YET THIS AM. PT. PROVIDED WITH CLEAR LIQUID TRAY THIS AM. ABLE TO FEED AND REPOSITION SELF WITH OUT DIFFICULTY VSS THIS AM. NADN. CALL LIGHT IN REACH.
--- NOTE | 2021-11-07 12:25 | NUR ---
PT UP TO CHAIR FOR LUNCH. NO BM TODAY SO FAR. PT. UP TO BEDSIDE TOILET TO VOID FREQUENTLY, STAND BY ASSSIT FOR CORDS AND LINES. VSS.
[2021-11-07 15:25] LABS: Hematocrit 25.3 % (33.0-51.0); Hemoglobin 8.2 g/dL (11.5-16.0)
--- NOTE | 2021-11-07 17:06 | NUR ---
SHIFT SUMMARY PT. REMAINS ALERT AND ORIENTED. NO FURTHER BLOODY STOOLS THIS SHIFT. PT TO START BOWL PREP THIS PM PER DR. FRANK AND PLANS FOR SCOPE TOMORROW AFTERNOON. PT REMAINS ON CLEAR LIQUID. LR INFUSING AT 50ML/HR. PT. CONTINUES TO DENY PAIN. VSS T/O SHIFT. NADN REPORT TO ONCOMING RN.
--- NOTE | 2021-11-07 20:00 | NUR ---
ASSUMED CARE OF PT AT 1915. REPORT RECEIVED AT BEDSIDE. PT PRESENTS IN BED. ALERT AND ORIENTED. PLEASANT AND COOPERATIVE WITH CARE AND ASSESSMENT. IS BEGINNING PROCESS OF BOWEL PREP. TEACHING DONE WITH PT. WILL REVIEW CHART AND PLAN OF CARE FOR THIS PT.
--- NOTE | 2021-11-08 | NUR ---
PT CONTINUES WITH BOWEL PREP. HAS BEEN ABLE TO GET UP TO BEDSIDE COMMODE FOR STOOL AND TO VOID. PT HAS BEEN HAVING GOOD RESULTS FROM BOWEL PREP. NO COMPLAINTS OF NAUSEA. DOES CALL FOR ASSIST.
[2021-11-08 03:38] LABS: Hematocrit 24.5 % (33.0-51.0); Mean Corpuscular HGB 27.7 pg (26.0-34.0); Mean Corpuscular HGB Conc 32.7 g/dL (31.5-36.5); Mean Corpuscular Volume 85 fL (80-100); Mean Platelet Volume 10.3 fL (9.1-12.4); NRBC ABSOLUTE 0.02 K/mm3 (0.00-0.02); NRBC Auto 0.1 /100 WBC (0.0-0.2); Platelet Count 247 K/mm3 (150-400); RDW Coefficient Variation 15.1 % (11.7-14.2); RDW Standard Deviation 46.1 fL (35.1-46.3); Red Blood Cell Count 2.89 M/mm3 (3.80-5.20); White Blood Cell Count 13.53 K/mm3 (4.00-11.30)
[2021-11-08 03:53] LABS: Bun/Creatinine Ratio 12.7 (12.0-20.0); Creatinine, Blood 1.02 mg/dL (0.40-1.00); Potassium, Blood 3.5 mmol/L (3.5-5.5)
--- NOTE | 2021-11-08 06:43 | NUR ---
PT HAS BEEN ABLE TO REST SOME AFTER THE BOWEL PREP RESULTS SLOWED. HAS REMAINED ALERT AND ORIENTED. WILL RECEIVE SECOND PART OF BOWEL PREP AT 0800 THIS AM. TEACHING DONE ON WHAT TO EXPECT WITH SECOND PART OF SERIES. PT'S CALLS THIS AM TO SEE HOW PT HAS DONE THROUGH THE NIGHT. UPDATE GIVEN. WILL CONTINUE TO MONITOR PT, AND WILL REPORT OFF TO ONCOMING RN.
--- NOTE | 2021-11-08 07:30 | NUR ---
ASSUMED CARE: PT RESTING QUIETLY AT THIS TIME. NSR WITH BBB ON TELE. NO ACUTE NEEDS AT THIS TIME.
--- NOTE | 2021-11-08 13:17 | NUR ---
PT TAKEN TO DAY SURGERY FOR COLONOSCOPY BY DAY SURGERY STAFF. PREP WITH YELLOW OUTPUT WITH MINIMAL SEDIMENT. DAY SURGERY STAFF AWARE
--- NOTE | 2021-11-08 13:22 | NUR ---
11/08/21 1321 Jose Valle History, Chart, Medications and Allergies reviewed before start of procedure.MONITOR INTACT WITH CONTINUOUS PULSE OXIMETRY AND INTERMITTENT BP.3-LEAD EKG REVIEWED WITH PHYSICIAN PRIOR TO START OF PROCEDURE.O2 VIA N/C INTACT THROUGHOUT SEDATION/PROCEDURE. See Anesthesia record.
--- NOTE | 2021-11-08 14:30 | NUR ---
PT RETURNED FROM DAY SURGERY AFTER COLONOSCOPY. STAFF STATES DR FOUND AVM THAT WAS ABLATED AND CLIPPED. POLYPS BIOPSIED AND EVIDENCE OF DIVERTICULOSIS. CALL TO PT'S TO GIVE US A CALL BACK FOR UPDATE. PT SITTING UP IN CHAIR AT THIS TIME, DENIES NEEDS.
--- NOTE | 2021-11-08 14:52 | NUR ---
PT'S CALLED AND WAS GIVEN UPDATE. PT SITTING UPRIGHT IN CHAIR. DENIES QUESTIONS OR CONCERNS AT THIS TIME.
--- NOTE | 2021-11-08 18:18 | NUR ---
SHIFT SUMMARY: PT HAD COLONOSCOPY TODAY WITH AVM FOUND AND CLIPPED. FAMILY HAS BEEN UPDATED ON STATUS. PT TOLERATING SOLID FOOD, GRILLED CHEESE AND TOMATO SOUP FOR DINNER. POSSIBLE DC TOMORROW. INDEPENDENT IN ROOM. NO ACUTE NEEDS OR CONCERNS AT THIS TIME.
--- NOTE | 2021-11-08 19:15 | NUR ---
ASSUMPTION OF CARE: PT IS MED STATUS, NO SHREDDING MACHINE OPERATOR. VSS, PT ALERT AND ORIENTED, AMBULATORY W/NO S/S OF DISTRESS NOTED AT TIME OF ASSUMPTION OF CARE.
[2021-11-09 03:19] LABS: Hematocrit 23.8 % (33.0-51.0); Hemoglobin 7.5 g/dL (11.5-16.0); Mean Corpuscular HGB 27.2 pg (26.0-34.0); Mean Corpuscular HGB Conc 31.5 g/dL (31.5-36.5); Mean Corpuscular Volume 86 fL (80-100); Mean Platelet Volume 10.4 fL (9.1-12.4); Platelet Count 237 K/mm3 (150-400); RDW Coefficient Variation 15.4 % (11.7-14.2); RDW Standard Deviation 47.2 fL (35.1-46.3); Red Blood Cell Count 2.76 M/mm3 (3.80-5.20); White Blood Cell Count 11.33 K/mm3 (4.00-11.30)
[2021-11-09 03:35] LABS: Bun/Creatinine Ratio 16.1 (12.0-20.0); Creatinine, Blood 0.93 mg/dL (0.40-1.00); Potassium, Blood 2.9 mmol/L (3.5-5.5)
--- NOTE | 2021-11-09 06:41 | NUR ---
SHIFT SUMMERY PT ALERT, ORIENTED WITH NO DISTRESS OVERNIGHT. IV REMOVED PER MD ORDER. PT ON ROOM AIR, AMBULATORY WITH NO COMPLAINTS AT THIS TIME.
--- NOTE | 2021-11-09 10:36 | NUR ---
DISCHARGE PT DISCHARGED TO HOME VIA PRIVATE VEHICLE. PT REPORTS FEELING MUCH BETTER AND READY TO GO HOME. REVIEWED PT'S HOME MEDS WITH HER, EMPHASIZED NOT TO RESTART ELIQUIS UNTIL THURSDAY AND PT VERBALIZED UNDERSTANDING. PT ABLE TO DRESS HERSELF. ESCORTED VIA WC TO HER VEHICLE WITH HER DRIVING. ALL BELONGINGS SENT HOME WITH PT. PT VERBALIZED UNDERSTANDING TO CALL PCP ON THURSDAY FOR FOLLOW UP APPOINTMENT STAFF IS UNABLE TO CALL OVER THE WEEKEND.
== END 2021-11-09 10:40 | disposition home or self-care (01) | DRG 378 ==
LOC: ER 17:29 → ICUW 20:55 → ICUE 20:55
PROVIDERS: Emergency Medicine; Internal Medicine; Student in an Organized Health Care Education/Training Program; ADMIT Family Medicine
PROC: 30233N1 Transfusion of Nonautologous Red Blood Cells into Peripheral Vein, Percutaneous Approach (ICD-10-PCS; 2021-11-05)
PROC: 0DJ08ZZ Inspection of Upper Intestinal Tract, Via Natural or Artificial Opening Endoscopic (ICD-10-PCS; 2021-11-06)
PROC: 0W3P8ZZ Control Bleeding in Gastrointestinal Tract, Via Natural or Artificial Opening Endoscopic (ICD-10-PCS; principal; 2021-11-08 08:45)
PROC: 0DBN8ZZ Excision of Sigmoid Colon, Via Natural or Artificial Opening Endoscopic (ICD-10-PCS; 2021-11-08 08:45)
DX: K55.21 Angiodysplasia of colon with hemorrhage (principal); I50.42 Chronic combined systolic (congestive) and diastolic (congestive) heart failure; D62 Acute posthemorrhagic anemia; K57.32 Diverticulitis of large intestine without perforation or abscess without bleeding; Z86.711 Personal history of pulmonary embolism; J44.9 Chronic obstructive pulmonary disease, unspecified; Z79.01 Long term (current) use of anticoagulants; Z95.2 Presence of prosthetic heart valve; Z90.722 Acquired absence of ovaries, bilateral; Z98.890 Other specified postprocedural states; Z90.11 Acquired absence of right breast and nipple; Z79.899 Other long term (current) drug therapy; Z87.891 Personal history of nicotine dependence; D72.828 Other elevated white blood cell count; I48.0 Paroxysmal atrial fibrillation; E78.5 Hyperlipidemia, unspecified; Z85.3 Personal history of malignant neoplasm of breast; Z90.49 Acquired absence of other specified parts of digestive tract; Z90.710 Acquired absence of both cervix and uterus; Z79.82 Long term (current) use of aspirin; K44.9 Diaphragmatic hernia without obstruction or gangrene; K64.4 Residual hemorrhoidal skin tags
CPT/HCPCS: 0241U; 36415; 36430; 80048; 80053; 82272; 85014; 85018; 85025; 85027; 85610; 86850; 86900; 86901; 86923; 88305; 90686; 96374; 99285; A9270; C9113; G0008; J2405; J2704; J3480; J7030; J7120; P9016

== ENCOUNTER → 2023-04-06 | Outpatient (CLI) | payer MEDICARE, OTHER | END | disposition home or self-care (01) | LOC: LAB SHORT 12:02 → LAB 12:02 | DX: R32 Unspecified urinary incontinence (principal) | CPT/HCPCS: 87077; 87086; 87186 ==

== ENCOUNTER 2024-06-01 04:41 | Emergency (ER) | payer MEDICARE, OTHER ==
[~2024-06-01] VITALS: Ht 167.6 cm; Wt 99.8 kg
[2024-06-01 04:49] VITALS: BP 147/74
== END 2024-06-01 05:45 | disposition home or self-care (01) ==
LOC: ER 04:41
DX: U07.1 COVID-19 (principal); Z87.891 Personal history of nicotine dependence; Z79.82 Long term (current) use of aspirin; Z79.899 Other long term (current) drug therapy
CPT/HCPCS: 99285

== ENCOUNTER 2024-08-16 19:42 | Inpatient (IN) | payer MEDICARE, OTHER ==
[~2024-08-16] VITALS: Ht 157.5 cm; Wt 98.6 kg
[~2024-08-16 19:42] MED LIST changes: +Phenylephrine HCl 100 MCG/ML-NS 10MLSYR (1MG/10ML) IV ONE
[2024-08-16] MEDS ORDERED: ESCI10 PO (20:12)
[2024-08-16] MEDS ORDERED: VERAPAMIL ER120 M1 PO (20:12)
[2024-08-16] MEDS ORDERED: WIXELA 100-501 EAC1 INH (20:13)
[2024-08-16] MEDS ORDERED: NAPR500 PO (20:14)
[2024-08-16] MEDS ORDERED: Ipratropium/Albuterol SulF 2.5-0.5MG/3 ML Amp INH ONE (20:15)
[2024-08-16 20:46] LABS: BASOPHILS ABSOLUTE AUTO 0.11 K/mm3 (0.00-0.23); BASOPHILS PERCENT AUTO 1 % (0-2); EOSINOPHILS PERCENT AUTO 1 % (0-6); Hematocrit 22.2 % (33.0-51.0); IMMATURE GRAN ABSOLUTE AUTO 0.52 K/mm3 (0.00-0.10); IMMATURE GRAN PERCENT AUTO 3 % (0-1); LYMPHOCYTES ABSOLUTE AUTO 2.65 K/mm3 (0.84-5.20); LYMPHOCYTES PERCENT AUTO 13 % (21-46); MONOCYTES ABSOLUTE AUTO 1.15 K/mm3 (0.16-1.47); MONOCYTES PERCENT AUTO 6 % (4-13); Mean Corpuscular HGB 28.8 pg (26.0-34.0); Mean Corpuscular HGB Conc 31.5 g/dL (31.5-36.5); Mean Corpuscular Volume 91 fL (80-100); Mean Platelet Volume 10.9 fL (9.1-12.4); NEUTROPHILS ABSOLUTE AUTO 15.22 K/mm3 (1.96-9.15); NEUTROPHILS PERCENT AUTO 77 % (41-73); NRBC ABSOLUTE 0.18 K/mm3 (0.00-0.02); NRBC Auto 0.9 /100 WBC (0.0-0.2); Platelet Count 248 K/mm3 (150-400); RDW Coefficient Variation 16.1 % (11.7-14.2); RDW Standard Deviation 50.5 fL (35.1-46.3); Red Blood Cell Count 2.43 M/mm3 (3.80-5.20); White Blood Cell Count 19.75 K/mm3 (4.00-11.30)
[2024-08-16] MEDS ORDERED: Azithromycin 250 MG Tab PO ONE (21:00)
[2024-08-16] MEDS ORDERED: CefTRIAXone Sodium 1,000 MG in NS 100 ML IV ONE (21:00)
[2024-08-16 21:05] LABS: Magnesium, Blood 1.7 mg/dL (1.6-2.4)
[2024-08-16 21:06] LABS: Albumin, Blood 3.1 g/dL (3.4-5.0); Albumin/Globulin Ratio 1.1 (0.8-1.8); Bilirubin, Total 0.6 mg/dL (0.1-1.0); Bun/Creatinine Ratio 41.7 (12.0-20.0); Calcium, Blood 8.7 mg/dL (8.5-10.1); Creatinine, Blood 1.08 mg/dL (0.40-1.00); Globulin, Blood 2.7 g/dL (2.2-4.0); Total Protein, Blood 5.8 g/dL (6.4-8.2)
[2024-08-16 21:41] LABS: Influenza A, PCR NEGATIVE (NEGATIVE); Influenza B, PCR NEGATIVE (NEGATIVE); Resp Syncytial Virus, PCR NEGATIVE (NEGATIVE); SARS-Cov-2 (COVID-19) PCR, MMC NEGATIVE (NEGATIVE)
[2024-08-16] MEDS ORDERED: Acetaminophen 325 MG TABLET PO PRN (23:10)
[2024-08-16] MEDS ORDERED: FLU VACC TS2024-25(6MOS UP)/PF 45 MCG/0.5 ML SYRINGE IM SCH (23:10)
[2024-08-16] MEDS ORDERED: Magnesium Hydroxide Conc 10 ML UDC PO PRN (23:10)
[2024-08-16] MEDS ORDERED: Bisacodyl 10 MG Supp PR PRN (23:10)
[2024-08-16] MEDS ORDERED: Ipratropium/Albuterol SulF 2.5-0.5MG/3 ML Amp INH PRN (23:15)
[2024-08-16 23:33] LABS: Percent Saturation 15.9 % (15.0-50.0)
[2024-08-16] MEDS ORDERED: Furosemide 10 MG / ML 2ML Vial IV ONE (23:55)
[2024-08-17] VITALS (10 sets, daily range): BP systolic 85–102; BP diastolic 40–73
[2024-08-17] MEDS ORDERED: PredniSONE 20 MG Tab PO SCH
[2024-08-17] MEDS ORDERED: Carvedilol 6.25 MG Tab PO SCH
[2024-08-17] MEDS ORDERED: Amiodarone HCl 200 MG Tab PO SCH
[2024-08-17] MEDS ORDERED: Apixaban 5 MG Tab PO SCH
[2024-08-17] MEDS ORDERED: Mometasone/Formoterol MDI 100/5 mcg 13 GM INH SCH (00:55)
[2024-08-17 01:22] LABS: BASOPHILS ABSOLUTE AUTO 0.11 K/mm3 (0.00-0.23); BASOPHILS PERCENT AUTO 1 % (0-2); EOSINOPHILS ABSOLUTE AUTO 0.17 K/mm3 (0.00-0.68); EOSINOPHILS PERCENT AUTO 1 % (0-6); Hematocrit 22.2 % (33.0-51.0); Hemoglobin 7.2 g/dL (11.5-16.0); IMMATURE GRAN ABSOLUTE AUTO 0.39 K/mm3 (0.00-0.10); IMMATURE GRAN PERCENT AUTO 2 % (0-1); LYMPHOCYTES ABSOLUTE AUTO 3.51 K/mm3 (0.84-5.20); LYMPHOCYTES PERCENT AUTO 17 % (21-46); MONOCYTES ABSOLUTE AUTO 1.47 K/mm3 (0.16-1.47); MONOCYTES PERCENT AUTO 7 % (4-13); Mean Corpuscular HGB 29.8 pg (26.0-34.0); Mean Corpuscular HGB Conc 32.4 g/dL (31.5-36.5); Mean Corpuscular Volume 92 fL (80-100); Mean Platelet Volume 10.9 fL (9.1-12.4); NEUTROPHILS ABSOLUTE AUTO 15.44 K/mm3 (1.96-9.15); NEUTROPHILS PERCENT AUTO 73 % (41-73); NRBC ABSOLUTE 0.28 K/mm3 (0.00-0.02); NRBC Auto 1.3 /100 WBC (0.0-0.2); Platelet Count 244 K/mm3 (150-400); RDW Coefficient Variation 16.3 % (11.7-14.2); RDW Standard Deviation 50.4 fL (35.1-46.3); Red Blood Cell Count 2.42 M/mm3 (3.80-5.20); White Blood Cell Count 21.09 K/mm3 (4.00-11.30)
[2024-08-17 01:24] LABS: Base Excess Venous 1.6 mmol/L; Bicarbonate Venous 25.8 mmol/L (24.0-30.0); PCO2 Venous 35.8 mmHg (38-42); pH Blood Venous 7.46 (7.34-7.37)
[2024-08-17 01:37] LABS: Magnesium, Blood 1.8 mg/dL (1.6-2.4)
[2024-08-17 01:38] LABS: Albumin, Blood 2.9 g/dL (3.4-5.0); Anion Gap 14 mmol/L (3-11); Blood Urea Nitrogen 48 mg/dL (8-24); CO2, Blood 24 mmol/L (21-32); Chloride, Blood 110 mmol/L (98-108); Creatinine, Blood 1.09 mg/dL (0.40-1.00); Glomerular Filtration Rate 51 (60-); Glucose, Blood 126 mg/dL (70-99); Phosphorus, Blood 3.3 mg/dL (2.5-4.9); Potassium, Blood 3.8 mmol/L (3.5-5.5); Sodium, Blood 144 mmol/L (136-145)
[2024-08-17] MEDS ORDERED: Furosemide 40 MG Tab PO ONE (03:25)
[2024-08-17] MEDS ORDERED: NS 250 ML IV PRN (06:45)
[2024-08-17] MEDS ORDERED: Polyethylene Glycol 3350 17 gm PO PRN (07:20)
[2024-08-17] MEDS ORDERED: Sennosides 8.6 MG Tab PO SCH (09:00)
[2024-08-17] MEDS ORDERED: Citalopram Hydrobromide 20 MG Tab PO SCH (09:00)
[2024-08-17] MEDS ORDERED: Docusate Sodium 100 MG Cap PO SCH (09:00)
[2024-08-17] MEDS ORDERED: Furosemide 40 MG Tab PO SCH (09:00)
[2024-08-17] MEDS ORDERED: Lactobacil 2-S.Thermo-Bifido 1 1 Cap PO SCH (09:00)
--- NOTE | 2024-08-17 12:06 | NUR ---
THIS NURSE NOTIFIED OF PT'S LOW BP. PER PROVIDER, HOLD COREG AND LASIX. PT ASYMPTOMATIC AT THIS TIME.
[2024-08-17 15:05] LABS: Stool Occult Blood Guaiac 1 Pos (Neg)
--- NOTE | 2024-08-17 16:08 | NUR ---
PT C/O N/V AND HAD EMESIS X2. THIS NURSE CALLED TO NOTIFY OF EMESIS, POSITIVE OCCULT RESULT, AND RECEIVE ORDER FOR N/V. PROVIDER TO PUT IN ORDER FOR N/V.
[2024-08-17] MEDS ORDERED: Ondansetron HCl 2 MG / ML 2ML Vial IV PRN (16:15)
[2024-08-17] MEDS ORDERED: Pantoprazole Sodium 40 MG Injection IV SCH (17:00)
[2024-08-17 17:13] LABS: Hematocrit 20.2 % (33.0-51.0); Hemoglobin 6.3 g/dL (11.5-16.0)
--- NOTE | 2024-08-17 17:57 | NUR ---
THIS NURSE CALLED TO NOTIFY OF PT'S HGB OF 6.3. ORDER GIVEN FOR 1 UNIT OF PRBC.
--- NOTE | 2024-08-17 18:35 | NUR ---
SHIFT SUMMARY PT A&OX4, AMB TO THE BSC, TOLERATING PO, VOIDING, AND DENIED PAIN. PT HYPOTENSIVE, BUT ASYMPTOMATIC. PT HAD EMESIS X2, DARK STOOL X2, POSITIVE OCCULT, AND HGB 6.3 PROVIDER AWARE, SEE PREVIOUS NOTES. 1 UNIT PRBC ORDERED. CALL LIGHT WITHIN REACH AND BED ALARM ON FOR SAFETY.
[2024-08-17] MEDS ORDERED: Azithromycin 250 MG Tab PO SCH (21:00)
[2024-08-17] MEDS ORDERED: Docusate Sodium/Senna 1 Tab PO SCH (21:00)
[2024-08-17] MEDS ORDERED: Atorvastatin 10 MG Tab PO SCH (21:00)
[2024-08-18] VITALS (8 sets, daily range): BP systolic 96–124; BP diastolic 48–65
--- NOTE | 2024-08-18 04:36 | NUR ---
SHIFT SUMMARY INFUSED 1 UNIT PRBC, TOLERATED WELL. UP TO BSC FOR VOIDS, NO BMS THIS SHIFT.MEDICATED WITH PRN DOSE TYLENOL FOR HIP PAIN. LOW BPS PERSIST.
[2024-08-18 05:45] LABS: Hematocrit 22.5 % (33.0-51.0); Hemoglobin 6.9 g/dL (11.5-16.0); Mean Corpuscular HGB 28.2 pg (26.0-34.0); Mean Corpuscular HGB Conc 30.7 g/dL (31.5-36.5); Mean Corpuscular Volume 92 fL (80-100); Mean Platelet Volume 10.9 fL (9.1-12.4); NRBC ABSOLUTE 0.66 K/mm3 (0.00-0.02); NRBC Auto 2.2 /100 WBC (0.0-0.2); Platelet Count 233 K/mm3 (150-400); RDW Coefficient Variation 19.2 % (11.7-14.2); RDW Standard Deviation 54.4 fL (35.1-46.3); Red Blood Cell Count 2.45 M/mm3 (3.80-5.20); White Blood Cell Count 30.23 K/mm3 (4.00-11.30)
[2024-08-18 06:17] LABS: Magnesium, Blood 1.9 mg/dL (1.6-2.4); Thyroxine (T4) 8.5 ug/dL (4.8-13.9)
[2024-08-18 06:18] LABS: Albumin, Blood 2.9 g/dL (3.4-5.0); Anion Gap 14 mmol/L (3-11); Blood Urea Nitrogen 40 mg/dL (8-24); Bun/Creatinine Ratio 33.6 (12.0-20.0); CO2, Blood 23 mmol/L (21-32); Calcium, Blood 8.7 mg/dL (8.5-10.1); Chloride, Blood 106 mmol/L (98-108); Creatinine, Blood 1.19 mg/dL (0.40-1.00); Glomerular Filtration Rate 46 (60-); Glucose, Blood 151 mg/dL (70-99); Potassium, Blood 3.4 mmol/L (3.5-5.5); Sodium, Blood 140 mmol/L (136-145)
--- NOTE | 2024-08-18 06:42 | NUR ---
LOW HG REPORTED TO DR STRAUSS, ORDER FOR 2ND PRBC, TO BE GIVEN WHEN READY.
[2024-08-18] MEDS ORDERED: Potassium Chl 20MEQ/Water100ML 100 ML IV STA (12:49)
--- NOTE | 2024-08-18 13:29 | NUR ---
PT REPORTS SEVERE BURNING WITH IV POTASSIUM. RATE DECREASED BY HALF AND PT REPORTS STILL HAVING SEVERE BURNING. IV HAS BLOOD RETURN WITH ASPIRATION AND FLUSHES EASILY. SPOKE WITH DR DELEON AND ORDERS RECEIVED. POTASSIUM INFUSION DC'D
[2024-08-18] MEDS ORDERED: Potassium Chloride 10 Meq Tablet SA PO ONE (13:30)
[2024-08-18] MEDS ORDERED: Peg/Electrolytes 4,000 ML BTL PO ONE (13:40)
[2024-08-18 15:25] LABS: Hematocrit 25.6 % (33.0-51.0); Hemoglobin 8.3 g/dL (11.5-16.0); Mean Corpuscular HGB 29.3 pg (26.0-34.0); Mean Corpuscular HGB Conc 32.4 g/dL (31.5-36.5); Mean Corpuscular Volume 91 fL (80-100); Mean Platelet Volume 10.7 fL (9.1-12.4); NRBC ABSOLUTE 0.41 K/mm3 (0.00-0.02); NRBC Auto 1.7 /100 WBC (0.0-0.2); Platelet Count 198 K/mm3 (150-400); RDW Coefficient Variation 18.6 % (11.7-14.2); RDW Standard Deviation 53.9 fL (35.1-46.3); Red Blood Cell Count 2.83 M/mm3 (3.80-5.20); White Blood Cell Count 24.03 K/mm3 (4.00-11.30)
--- NOTE | 2024-08-18 19:09 | NUR ---
REPORT RECEIVED VERIFIED, PT A/O X4 PLEASENT AND VERY SLEEPY, BLOOD ORDERED AND TRANSFUSION STARTED AT 0730, PT DOING VERY WELL WITH BLOOD NO S/S OF TRANSFUION REACTION. VSS PT ESA VERY WELL NO CHANGE IN CONDITION, GASTRO DR INTO SEE PT AND SCHEDULE COLONSOCOPY FOR THE MORNING, PT AWARE. 1330 PT STARTED PREP, BM WAS BLACK TARRY STOOL FOLLOWED BY BLACK WATERY STOOL. PT VSS AND IS ESA PREP. 1700 PREP DONE AND PT STOOL CLEARING NO NOTED DEMETRIA RED BLOOD. PT NPO AFTER MIDNIGHT AND ON CLR LIQS NOW
[2024-08-19] VITALS (9 sets, daily range): BP systolic 89–125; BP diastolic 47–78
[2024-08-19 00:45] LABS: Hematocrit 24.9 % (33.0-51.0); Hemoglobin 8.1 g/dL (11.5-16.0)
--- NOTE | 2024-08-19 03:15 | NUR ---
TEMPERATURE REGULATOR PYROMETER SUMMARY PT FINISHED [facility] AT 1845 ON 08/18. BOWEL PREP WAS ADEQUATE. HER STOOLS HAVE BECOME MOSTLY CLEAR/LIGHT YELLOW WITH SOME STOOL BEING BRIGHT RED BLOOD. DR STRAUSS NOTIFIED AT MIDNIGHT OF BRIGHT RED BLOOD IN HER WATERY STOOLS AND WE CHECKED AN H/H WHICH WAS STABLE AT 8.1/24.9. PT WAS GIVEN A SHOWER AT HER REQUEST. SHE DID NOT SLEEP WELL RELATED TO HER BOWEL PREP. PT DENIES DIZZINESS. PT STILL HAS A SPUTUM CULTURE ORDERED BUT HAS NOT BEEN ABLE TO PRODUCE ANY SPUTUM YET TONIGHT. ATTEMPTING TO WEAN O2 THROUGHOUT THE NIGHT.
[2024-08-19 05:28] LABS: Hematocrit 24.8 % (33.0-51.0); Hemoglobin 7.8 g/dL (11.5-16.0); Mean Corpuscular HGB Conc 31.5 g/dL (31.5-36.5); Mean Corpuscular Volume 92 fL (80-100); Mean Platelet Volume 10.7 fL (9.1-12.4); NRBC ABSOLUTE 0.22 K/mm3 (0.00-0.02); NRBC Auto 0.9 /100 WBC (0.0-0.2); Platelet Count 202 K/mm3 (150-400); RDW Coefficient Variation 18.7 % (11.7-14.2); RDW Standard Deviation 54.8 fL (35.1-46.3); Red Blood Cell Count 2.69 M/mm3 (3.80-5.20); White Blood Cell Count 24.27 K/mm3 (4.00-11.30)
[2024-08-19 05:55] LABS: Anion Gap 13 mmol/L (3-11); Blood Urea Nitrogen 23 mg/dL (8-24); Bun/Creatinine Ratio 25.8 (12.0-20.0); CO2, Blood 25 mmol/L (21-32); Calcium, Blood 8.6 mg/dL (8.5-10.1); Chloride, Blood 106 mmol/L (98-108); Creatinine, Blood 0.89 mg/dL (0.40-1.00); Glomerular Filtration Rate 66 (60-); Glucose, Blood 110 mg/dL (70-99); Magnesium, Blood 1.7 mg/dL (1.6-2.4); Phosphorus, Blood 2.7 mg/dL (2.5-4.9); Potassium, Blood 3.4 mmol/L (3.5-5.5); Sodium, Blood 141 mmol/L (136-145)
[2024-08-19] MEDS ORDERED: Potassium Chloride 20 MEQ TabCR PO ONE (07:35)
--- NOTE | 2024-08-19 10:34 | NUR ---
NOTE: RECEIVED A CALL FROM PCU PATIENT FINANCIAL COUNSELORCHANG VU AT AROUND 0945. PER CHANG FROM A FLUTTER HR IN THE HIGH 70'S BPM AT BEGINNING OF SHIFT. AT 0853 PATIENT CONVERTED TO SR HR IN THE HIGH 60'S BPM.
[2024-08-19] MEDS ORDERED: Lactated Ringer's 1,000 ML IV SCH (13:25)
--- NOTE | 2024-08-19 13:51 | NUR ---
NOTE: THIS RN WAS NOTIFIED BY [email or web address], [employer] AT 1330. PER CHANG, PATIENT HAS BEEN HAVING PROLONG QTC 0.51 YESTERDAY AND ALL NIGHT LAST NIGHT, BUT AROUND NOONISH THE PROLONG QTC HAS INCREASED TO 0.55, SR IN THE 70'S BPM. NOTIFIED DR. DELEON REGARDING THIS CONCERNED. DR. DELEON DC'D ZOFRAN AND ASKED THIS RN TO COMMUNICATE TO PHARMACIST IF SOME OF HER MEDS CAUSING THE PROLONG QTC. THIS RN SPOKE TO MARSHA, PHARMACIST REGARDING THIS ISSUE. PER MARSHA SHE WILL REVIEWED PATIENT MED LIST AND NOTIFIED DR. DELEON.
[2024-08-19] MEDS ORDERED: propofoL 20 ML IV ONE (16:13)
[2024-08-19] MEDS ORDERED: Ondansetron HCl 2 MG / ML 2ML Vial ONE (16:13)
[2024-08-19] MEDS ORDERED: Glycopyrrolate 0.2 MG/ML 5ML VIAL ONE (16:15)
[2024-08-19] MEDS ORDERED: propofoL 60 ML IV ONE (16:16)
--- NOTE | 2024-08-19 16:29 | NUR ---
NOTE: PATIENT LEFT THE ROOM VIA GURNEY AT THIS TIME TO DAY SURGERY FOR UPPER/LOWER SCOPE.
--- NOTE | 2024-08-19 16:43 | NUR ---
CHANGED IV DRESSING TO LAC AND FLUSHED WITH 10NS/PATENT.
[2024-08-19] MEDS ORDERED: Lidocaine HCl 4% 5 ML SDA ONE (16:46)
--- NOTE | 2024-08-19 17:27 | NUR ---
08/19/24 1727 Celena Menon 4275 INTO ENDO 1.MONITOR INTACT WITH CONTINUOUS PULSE OXIMETRY, CONTINUOUS END TITAL CO2, AND INTERMITTENT BLOOD PRESSURE.3-LEAD EKG REVIEWED WITH PHYSICIAN PRIOR TO START OF PROCEDURE.O2 VIA POM INTACT THROUGHOUT SEDATION/PROCEDURE.LIDO 4% 3 ML.Bite Block Placed.POM MASK @ [address] MUNOZ PROVIDING ANESTHESIA.
--- NOTE | 2024-08-19 18:37 | NUR ---
SHIFT SUMMARY: PATIENT A/OX3-4, ANSWER TO QUESTIONS APPROPRIATELY AND ABLE TO MAKE NEEDS KNOWN. PATIENT HAD HER BOWEL PREP COMPLETED LAST NIGHT. PATIENT HAD NO BM THIS SHIFT. NPO SINCE MN. PATIENT HAD HER UPPER/LOWER SCOPE DONE LATE THIS PM. PATIENT BACK IN ROOM FROM HER PROCEDURE AT AROUND 1738. PATIENT DENIES PAIN OR DISCOMFORT TO HER ESOPHAGUS. POST-OP VITALS TAKEN. PATIENT REQUESTING FOOD AND SOMETHING TO DRINKS. THIS RN CALLED DR. QUESADA (GENERAL SURGEON), RECEIVED ORDER TO START PATIENT ON REGULAR DIET NOW. PATIENT ATE 90% OF HER DINNER. PATIENT HAS NO S/S OF DIFFICULTY SWALLOWING ON REGULAR TEXTURE FOOD OR LIQUID. PATIENT STILL ON TELE, SR HR IN THE HIGH 60'S TO 80'S BPM. PATIENT STILL ON 2L O2 VIA NC, SATTING 94-97%. PATIENT CONTINENT OF BLADDER, USES BSC INDENPENDENTLY T/O SHIFT. PATIENT RESTING IN BED AT THIS TIME c CALL LIGHT IN REACH.
[2024-08-19 19:13] LABS: Hemoglobin 7.5 g/dL (11.5-16.0); Mean Corpuscular HGB Conc 31.3 g/dL (31.5-36.5); Mean Corpuscular Volume 93 fL (80-100); Mean Platelet Volume 11.3 fL (9.1-12.4); NRBC ABSOLUTE 0.07 K/mm3 (0.00-0.02); NRBC Auto 0.5 /100 WBC (0.0-0.2); Platelet Count 193 K/mm3 (150-400); RDW Coefficient Variation 18.9 % (11.7-14.2); RDW Standard Deviation 57.1 fL (35.1-46.3); Red Blood Cell Count 2.59 M/mm3 (3.80-5.20); White Blood Cell Count 13.97 K/mm3 (4.00-11.30)
[2024-08-20 03:11] VITALS: BP 125/65
[2024-08-20 06:05] LABS: Hematocrit 24.9 % (33.0-51.0); Hemoglobin 7.9 g/dL (11.5-16.0); Mean Corpuscular HGB 29.4 pg (26.0-34.0); Mean Corpuscular HGB Conc 31.7 g/dL (31.5-36.5); Mean Corpuscular Volume 93 fL (80-100); NRBC ABSOLUTE 0.07 K/mm3 (0.00-0.02); NRBC Auto 0.4 /100 WBC (0.0-0.2); Platelet Count 219 K/mm3 (150-400); RDW Standard Deviation 58.7 fL (35.1-46.3); Red Blood Cell Count 2.69 M/mm3 (3.80-5.20); White Blood Cell Count 17.76 K/mm3 (4.00-11.30)
--- NOTE | 2024-08-20 06:17 | NUR ---
PAD EXTRACTOR TENDER SUMMARY NO CHANGES OVERNGIHT. PT HAS NOT HAD A BOWEL MOVEMENT SINCE COLONOSCOPY. PT MENTIONED THAT SHE HAD SOME VAGINAL BLEEDING A FEW WEEKS AGO. WILL PASS THIS INFO ON TO DAY SHIFT NURSE TO FYI DAY SHIFT MD IN CASE THIS IS RELEVANT. UPDATED FAMILY BY TELEPHONE.
[2024-08-20 06:24] LABS: Anion Gap 11 mmol/L (3-11); Blood Urea Nitrogen 20 mg/dL (8-24); Bun/Creatinine Ratio 20.7 (12.0-20.0); CO2, Blood 26 mmol/L (21-32); Calcium, Blood 8.7 mg/dL (8.5-10.1); Chloride, Blood 104 mmol/L (98-108); Creatinine, Blood 0.97 mg/dL (0.40-1.00); Glomerular Filtration Rate 59 (60-); Glucose, Blood 132 mg/dL (70-99); Magnesium, Blood 1.9 mg/dL (1.6-2.4); Phosphorus, Blood 3.2 mg/dL (2.5-4.9); Potassium, Blood 3.4 mmol/L (3.5-5.5); Sodium, Blood 138 mmol/L (136-145)
[2024-08-20 07:21] VITALS: BP 114/61
[2024-08-20] MEDS ORDERED: Citalopram Hydrobromide 10 MG TAB PO SCH (09:00)
[2024-08-20 15:36] VITALS: BP 107/54
[2024-08-20] MEDS ORDERED: Furosemide 10 MG/ML 4ML Vial IV ONE (16:40)
[2024-08-20] MEDS ORDERED: Potassium Chloride 20 MEQ TabCR PO ONE (16:40)
--- NOTE | 2024-08-20 17:00 | NUR ---
SHIFT SUMMARY: PATIENT A/O, [place], PLEASANT AND COOPERATIVE c CARE. PATIENT HAS HAD NO EVENTS ON TELE, SR HR RANGES 60-90'S BPM. DENIES CP/PRESSURE, SOB, N/V AND DIZZINESS. PATIENT HAS PLUS 2 PITTING EDEMA TO BLE'S/FEET. DR. BECKFORD ROUND ON PATIENT THIS PM AND UPDATED c THIS CONCERNED. RECEIVED VO TO GIVE OT DOSE OF IV LASIX, 40 MEQ PO K CHLORIDE AND HOLD 1700 COREG DOSE. PATIENT STILL ON 2L O2 VIA NC, SATTING 97%. PATIENT CONTINENT OF BLADDER, USES BSC INDEPENDENTLY AND NO BM THIS SHIFT. VITAL SIGNS REVIEWED. CALL LIGHT IN REACH.
[2024-08-20 19:28] VITALS: BP 105/67
[2024-08-21 03:59] VITALS: BP 103/60
--- NOTE | 2024-08-21 04:17 | NUR ---
SHEET WRITER SUMMARY NO ACUTE CHANGES OVERNIGHT. PT APPEARED TO SLEEP WELL WITH NO COMPLAINTS. MONITORING FOR BLEEDING BUT NO BOWEL MOVEMENT SINCE HER COLO/EGD PROCEDURE. BLOOD PRESSURE SLIGHTLY SOFT (103/60) SINCE DIURESING YESTERDAY. PT STILL NEEDS A SPUTUM SAMPLE BUT HASNT BEEN ABLE TO PRODUCE ONE YET.
--- NOTE | 2024-08-21 05:30 | NUR ---
FIRST BM SINCE COLONOSCOPY PT JUST HAD HER FIST BOWEL MOVEMENT SINCE HER COLO/EGD. IT WAS LIGHT BROWN WITH ABSOLUTELY NO SIGNS OF BLEEDING.
[2024-08-21 05:40] LABS: BASOPHILS ABSOLUTE AUTO 0.03 K/mm3 (0.00-0.23); BASOPHILS PERCENT AUTO 0 % (0-2); EOSINOPHILS ABSOLUTE AUTO 0.02 K/mm3 (0.00-0.68); EOSINOPHILS PERCENT AUTO 0 % (0-6); Hematocrit 24.7 % (33.0-51.0); Hemoglobin 7.7 g/dL (11.5-16.0); IMMATURE GRAN ABSOLUTE AUTO 0.25 K/mm3 (0.00-0.10); IMMATURE GRAN PERCENT AUTO 2 % (0-1); LYMPHOCYTES ABSOLUTE AUTO 1.67 K/mm3 (0.84-5.20); LYMPHOCYTES PERCENT AUTO 10 % (21-46); MONOCYTES ABSOLUTE AUTO 1.52 K/mm3 (0.16-1.47); MONOCYTES PERCENT AUTO 9 % (4-13); Mean Corpuscular HGB 29.1 pg (26.0-34.0); Mean Corpuscular HGB Conc 31.2 g/dL (31.5-36.5); Mean Corpuscular Volume 93 fL (80-100); Mean Platelet Volume 11.2 fL (9.1-12.4); NEUTROPHILS ABSOLUTE AUTO 12.85 K/mm3 (1.96-9.15); NEUTROPHILS PERCENT AUTO 79 % (41-73); NRBC ABSOLUTE 0.04 K/mm3 (0.00-0.02); NRBC Auto 0.2 /100 WBC (0.0-0.2); Platelet Count 193 K/mm3 (150-400); RDW Coefficient Variation 18.6 % (11.7-14.2); RDW Standard Deviation 60.2 fL (35.1-46.3); Red Blood Cell Count 2.65 M/mm3 (3.80-5.20); White Blood Cell Count 16.34 K/mm3 (4.00-11.30)
[2024-08-21 06:09] LABS: Albumin, Blood 2.9 g/dL (3.4-5.0); Anion Gap 13 mmol/L (3-11); Blood Urea Nitrogen 29 mg/dL (8-24); Bun/Creatinine Ratio 31.1 (12.0-20.0); CO2, Blood 27 mmol/L (21-32); Calcium, Blood 8.9 mg/dL (8.5-10.1); Chloride, Blood 102 mmol/L (98-108); Creatinine, Blood 0.93 mg/dL (0.40-1.00); Glomerular Filtration Rate 62 (60-); Glucose, Blood 155 mg/dL (70-99); Phosphorus, Blood 2.9 mg/dL (2.5-4.9); Potassium, Blood 3.7 mmol/L (3.5-5.5); Sodium, Blood 138 mmol/L (136-145)
[2024-08-21 07:29] VITALS: BP 111/85
[2024-08-21] MEDS ORDERED: Potassium Chloride 20 MEQ TabCR PO ONE (08:45)
[2024-08-21] MEDS ORDERED: PredniSONE 20 MG Tab PO SCH (09:00)
[2024-08-21] MEDS ORDERED: Furosemide 10 MG/ML 4ML Vial IV SCH (09:00)
[2024-08-21 09:13] LABS: Free Thyroxine 0.82 ng/dL (0.70-1.60); Thyroid Stimulating Hormone 3.59 uIU/mL (0.360-4.800); Triiodothyronine, Free 1.7 pg/mL (2.18-3.98)
[2024-08-21] MEDS ORDERED: ALBU2.5V5 INH (10:28)
[2024-08-21] MEDS ORDERED: MIRALAX17 GM PO (10:28)
[2024-08-21] MEDS ORDERED: ALBU90OI INH (10:29)
[2024-08-21] MEDS ORDERED: FERSU300 PO (10:30)
[2024-08-21] MEDS ORDERED: DOCU100 PO (10:30)
[2024-08-21] MEDS ORDERED: ASCO500 PO (10:30)
[2024-08-21] MEDS ORDERED: PANT20 PO (10:31)
[2024-08-21] MEDS ORDERED: Prednisone10 MG PO (10:32)
--- NOTE | 2024-08-21 14:33 | NUR ---
SHIFT/DISCHARGE SUMMARY: PATIENT A/OX3-4, [place], PLEASANT AND COOPERATIVE c CARE. PATIENT DENIES CP/PRESSURE, SOB, N/V AND DIZZINESS. PATIENT ON TELE AFIB HR IN THE LOW 100 BPM. PATIENT STILL HAS PLUS 2 EDEMA TO BLE'S, DIURESED c IV LASIX. KNEE HIGH STEPHANIE HOSE TO BLE'S IN PLACED. PATIENT RECEIVED SCHEDULED MEDS PER EMAR. PATIENT ON 2L O2 VIA NC, SATTING 96%. PATIENT HAD HOME O2 EVAL CONDUCTED BY RT, RECOMMENDING 2L CONTINUESLY. PATIENT PORTABLE O2 WAS DELIVERED IN ROOM BY [facility]. PIV TO LAC DC'D BY ITZ SUN. PATIENT DISCHARGE HOME c [facility]. DISCHARGE INSTRUCTIONS PACKET GIVEN TO PATIENT. EDUCATED PATIENT AND 2 SON'S AT BEDSIDE REGARDING ADMITTING DX'S OF COPD EXAC, S/S, TX, NEW PRESCRIBED RX, SELF CARE, DAILY WEIGHT, O2 AND TO F/U c PCP. PATIENT AND SON'S VERBALIZED UNDERSTANDING AND NO FURTHER QUESTIONS. RX WAS FAXED TO PATIENT PREFERRED PHARMACY-[facility]. ALL PATIENT PERSONAL BELONGINGS WERE SENT HOME c THE PATIENT. PATIENT LEFT THE ROOM AT 1412, TRANSPORTED VIA WHEELCHAIR.
== END 2024-08-21 14:14 | disposition home health service (06) | DRG 377 ==
LOC: ER 19:42 → MEDS 23:04 → ERHOLD 23:04 → MEDS 08-17 01:02 → ENPENDDIS 08-19 08:11 → MEDS 08-21 14:14
PROVIDERS: Family Medicine; Internal Medicine; Student in an Organized Health Care Education/Training Program; Surgery; ADMIT Student in an Organized Health Care Education/Training Program
PROC: 30233N1 Transfusion of Nonautologous Red Blood Cells into Peripheral Vein, Percutaneous Approach (ICD-10-PCS; principal; 2024-08-17)
PROC: 0DJD8ZZ Inspection of Lower Intestinal Tract, Via Natural or Artificial Opening Endoscopic (ICD-10-PCS; 2024-08-19)
PROC: 0DJ08ZZ Inspection of Upper Intestinal Tract, Via Natural or Artificial Opening Endoscopic (ICD-10-PCS; 2024-08-19 17:30)
DX: K92.2 Gastrointestinal hemorrhage, unspecified (principal); I50.43 Acute on chronic combined systolic (congestive) and diastolic (congestive) heart failure; J96.21 Acute and chronic respiratory failure with hypoxia; J96.01 Acute respiratory failure with hypoxia; D62 Acute posthemorrhagic anemia; J44.1 Chronic obstructive pulmonary disease with (acute) exacerbation; I48.20 Chronic atrial fibrillation, unspecified; I13.0 Hypertensive heart and chronic kidney disease with heart failure and stage 1 through stage 4 chronic kidney disease, or unspecified chronic kidney disease; E78.5 Hyperlipidemia, unspecified; N18.30 Chronic kidney disease, stage 3 unspecified; K64.9 Unspecified hemorrhoids; E87.6 Hypokalemia; Z95.2 Presence of prosthetic heart valve; Z79.01 Long term (current) use of anticoagulants; Z85.3 Personal history of malignant neoplasm of breast; Z86.711 Personal history of pulmonary embolism; Z90.89 Acquired absence of other organs; Z90.710 Acquired absence of both cervix and uterus; Z90.722 Acquired absence of ovaries, bilateral; Z87.891 Personal history of nicotine dependence; Z90.13 Acquired absence of bilateral breasts and nipples; Z95.1 Presence of aortocoronary bypass graft; Z79.899 Other long term (current) drug therapy; Z79.82 Long term (current) use of aspirin; Z99.81 Dependence on supplemental oxygen
CPT/HCPCS: 0241U; 36415; 36430; 71045; 80053; 80069; 82272; 82728; 82803; 83540; 83550; 83735; 83880; 84145; 84436; 84439; 84443; 84481; 84484; 85014; 85018; 85025; 85027; 86850; 86900; 86901; 86923; 93005; 93010; 94640; 94664; 94760; 94761; 96365; 97110; 97161; 97530; 99285-25; A9270; J0696; J1940; J2001; J2371; J2405; J2470; J2704; J3480; J7120; J7512; P9016

== ENCOUNTER 2024-09-06 13:13 | Emergency (ER) | payer MEDICARE, OTHER ==
[~2024-09-06] VITALS: Ht 160 cm; Wt 96.2 kg
[~2024-09-06 13:13] MED LIST changes: +ALBU2.5V5 INH; +ALBU90OI INH; +ASCO500 PO; +DOCU100 PO; +ESCI10 PO; +FERSU300 PO; +MIRALAX17 GM PO; +NAPR500 PO; +PANT20 PO; -Phenylephrine HCl 100 MCG/ML-NS 10MLSYR (1MG/10ML) IV ONE; +Prednisone10 MG PO; +VERAPAMIL ER120 M1 PO; +WIXELA 100-501 EAC1 INH
[2024-09-06 14:05] VITALS: BP 138/65
[2024-09-06] MEDS ORDERED: Pantoprazole Sodium 40 MG Injection IV ONE (14:20)
[2024-09-06 14:47] LABS: Source, Urine Clean Catch
[2024-09-06 14:48] LABS: BASOPHILS ABSOLUTE AUTO 0.06 K/mm3 (0.00-0.23); BASOPHILS PERCENT AUTO 1 % (0-2); EOSINOPHILS ABSOLUTE AUTO 0.23 K/mm3 (0.00-0.68); EOSINOPHILS PERCENT AUTO 2 % (0-6); Hematocrit 29.4 % (33.0-51.0); IMMATURE GRAN ABSOLUTE AUTO 0.07 K/mm3 (0.00-0.10); IMMATURE GRAN PERCENT AUTO 1 % (0-1); LYMPHOCYTES ABSOLUTE AUTO 1.08 K/mm3 (0.84-5.20); LYMPHOCYTES PERCENT AUTO 10 % (21-46); MONOCYTES ABSOLUTE AUTO 0.93 K/mm3 (0.16-1.47); MONOCYTES PERCENT AUTO 8 % (4-13); Mean Corpuscular HGB 27.7 pg (26.0-34.0); Mean Corpuscular HGB Conc 30.6 g/dL (31.5-36.5); Mean Corpuscular Volume 91 fL (80-100); Mean Platelet Volume 10.5 fL (9.1-12.4); NEUTROPHILS ABSOLUTE AUTO 8.82 K/mm3 (1.96-9.15); NEUTROPHILS PERCENT AUTO 79 % (41-73); Platelet Count 265 K/mm3 (150-400); RDW Coefficient Variation 16.2 % (11.7-14.2); RDW Standard Deviation 54.1 fL (35.1-46.3); Red Blood Cell Count 3.25 M/mm3 (3.80-5.20); White Blood Cell Count 11.19 K/mm3 (4.00-11.30)
[2024-09-06 14:59] LABS: Appearance, Urine Hazy (Clear); Bilirubin, Urine Neg (Neg); Blood, Urine 5+ (Neg); Color, Urine Yellow (P-Yellow); Glucose Qualitative, Urine Neg (Neg); Ketones, Urine Neg (Neg); Leukocyte Esterase, Urine 1+ (Neg); Nitrite, Urine Pos (Neg); Protein, Urine 2+ (Neg); Specific Gravity, Urine 1.015 (1.003-1.022); Urobilinogen, Urine NORM (Normal)
[2024-09-06 15:13] LABS: Albumin/Globulin Ratio 0.9 (0.8-1.8); Bun/Creatinine Ratio 12.4 (12.0-20.0); Calcium, Blood 8.6 mg/dL (8.5-10.1); Creatinine, Blood 1.05 mg/dL (0.40-1.00); Globulin, Blood 3.4 g/dL (2.2-4.0); Potassium, Blood 3.6 mmol/L (3.5-5.5); Total Protein, Blood 6.4 g/dL (6.4-8.2)
[2024-09-06 15:15] LABS: Bacteria Many /hpf; Squamous Epithelial Cells Few /hpf (Few); Transitional Epithelial Cells Rare /hpf (0-Rare)
[2024-09-06 15:42] LABS: International Normalized Ratio 1.06; Prothrombin Time Results 11.3 Sec (9.7-11.5)
[2024-09-06] MEDS ORDERED: Cephalexin Monohydrate 500 MG Cap PO ONE (17:55)
[2024-09-06] MEDS ORDERED: MIRALAX17 GM PO (19:47)
== END 2024-09-06 20:02 | disposition home or self-care (01) ==
LOC: ER 13:13
PROVIDERS: Emergency Medicine
DX: K64.4 Residual hemorrhoidal skin tags (principal); J44.9 Chronic obstructive pulmonary disease, unspecified; I50.20 Unspecified systolic (congestive) heart failure; Z79.899 Other long term (current) drug therapy; Z79.01 Long term (current) use of anticoagulants; Z79.52 Long term (current) use of systemic steroids; Z95.1 Presence of aortocoronary bypass graft; Z87.891 Personal history of nicotine dependence
CPT/HCPCS: 74177; 80053; 81001; 82272; 83880; 85025; 85610; 85730; 86850; 86900; 86901; 87077; 87086; 87186; 93005; 93010; 96374-59; 99284-25; A9270; J2470; Q9967

== ENCOUNTER 2024-09-16 14:49 | Inpatient (IN) | payer MEDICARE, OTHER ==
[~2024-09-16] VITALS: Ht 160 cm; Wt 99.3 kg
[2024-09-16 15:37] LABS: Source, Urine Clean Catch
[2024-09-16 15:45] LABS: Appearance, Urine Cloudy (Clear); Bilirubin, Urine Neg (Neg); Blood, Urine 5+ (Neg); Color, Urine Yellow (P-Yellow); Glucose Qualitative, Urine Neg (Neg); Ketones, Urine Neg (Neg); Leukocyte Esterase, Urine 1+ (Neg); Nitrite, Urine Neg (Neg); Protein, Urine 2+ (Neg); Urobilinogen, Urine NORM (Normal)
[2024-09-16 15:59] LABS: Bacteria Mod /hpf; Red Blood Cells, Urine TNTC /hpf (0-2); Squamous Epithelial Cells Few /hpf (Few)
[2024-09-16 18:14] LABS: BASOPHILS ABSOLUTE AUTO 0.09 K/mm3 (0.00-0.23); BASOPHILS PERCENT AUTO 1 % (0-2); EOSINOPHILS ABSOLUTE AUTO 0.05 K/mm3 (0.00-0.68); EOSINOPHILS PERCENT AUTO 0 % (0-6); Hematocrit 31.1 % (33.0-51.0); Hemoglobin 9.4 g/dL (11.5-16.0); IMMATURE GRAN ABSOLUTE AUTO 0.08 K/mm3 (0.00-0.10); IMMATURE GRAN PERCENT AUTO 1 % (0-1); LYMPHOCYTES ABSOLUTE AUTO 0.94 K/mm3 (0.84-5.20); LYMPHOCYTES PERCENT AUTO 8 % (21-46); MONOCYTES PERCENT AUTO 9 % (4-13); Mean Corpuscular HGB 26.6 pg (26.0-34.0); Mean Corpuscular HGB Conc 30.2 g/dL (31.5-36.5); Mean Corpuscular Volume 88 fL (80-100); Mean Platelet Volume 10.9 fL (9.1-12.4); NEUTROPHILS ABSOLUTE AUTO 9.74 K/mm3 (1.96-9.15); NEUTROPHILS PERCENT AUTO 81 % (41-73); Platelet Count 347 K/mm3 (150-400); RDW Coefficient Variation 16.3 % (11.7-14.2); RDW Standard Deviation 53.1 fL (35.1-46.3); Red Blood Cell Count 3.53 M/mm3 (3.80-5.20)
[2024-09-16 18:38] LABS: Albumin, Blood 3.1 g/dL (3.4-5.0); Albumin/Globulin Ratio 0.8 (0.8-1.8); Bilirubin, Total 0.8 mg/dL (0.1-1.0); Bun/Creatinine Ratio 12.1 (12.0-20.0); Creatinine, Blood 1.16 mg/dL (0.40-1.00); Globulin, Blood 3.8 g/dL (2.2-4.0); Total Protein, Blood 6.9 g/dL (6.4-8.2)
[2024-09-16] MEDS ORDERED: Ondansetron HCl 2 MG / ML 2ML Vial IV PRN (21:25)
[2024-09-16] MEDS ORDERED: Acetaminophen 325 MG TABLET PO PRN (21:25)
[2024-09-16] MEDS ORDERED: FLU VACC TS2024-25(6MOS UP)/PF 45 MCG/0.5 ML SYRINGE IM ONE (21:25)
[2024-09-16] MEDS ORDERED: CefTRIAXone Sodium 1,000 MG in NS 100 ML IV SCH (21:33)
[2024-09-16] MEDS ORDERED: Furosemide 10 MG/ML 4ML Vial IV SCH (22:00)
[2024-09-17 01:25] VITALS: BP 99/74
[2024-09-17 03:36] VITALS: BP 122/71
[2024-09-17 05:26] LABS: BASOPHILS ABSOLUTE AUTO 0.11 K/mm3 (0.00-0.23); BASOPHILS PERCENT AUTO 1 % (0-2); EOSINOPHILS ABSOLUTE AUTO 0.14 K/mm3 (0.00-0.68); EOSINOPHILS PERCENT AUTO 1 % (0-6); Hematocrit 29.3 % (33.0-51.0); Hemoglobin 8.9 g/dL (11.5-16.0); IMMATURE GRAN ABSOLUTE AUTO 0.09 K/mm3 (0.00-0.10); IMMATURE GRAN PERCENT AUTO 1 % (0-1); LYMPHOCYTES ABSOLUTE AUTO 1.25 K/mm3 (0.84-5.20); LYMPHOCYTES PERCENT AUTO 11 % (21-46); MONOCYTES ABSOLUTE AUTO 0.94 K/mm3 (0.16-1.47); MONOCYTES PERCENT AUTO 9 % (4-13); Mean Corpuscular HGB 26.7 pg (26.0-34.0); Mean Corpuscular HGB Conc 30.4 g/dL (31.5-36.5); Mean Corpuscular Volume 88 fL (80-100); NEUTROPHILS ABSOLUTE AUTO 8.48 K/mm3 (1.96-9.15); NEUTROPHILS PERCENT AUTO 77 % (41-73); Platelet Count 345 K/mm3 (150-400); RDW Coefficient Variation 16.2 % (11.7-14.2); RDW Standard Deviation 52.5 fL (35.1-46.3); Red Blood Cell Count 3.33 M/mm3 (3.80-5.20); White Blood Cell Count 11.01 K/mm3 (4.00-11.30)
[2024-09-17 05:59] LABS: Albumin, Blood 2.9 g/dL (3.4-5.0); Albumin/Globulin Ratio 0.8 (0.8-1.8); Bilirubin, Total 0.6 mg/dL (0.1-1.0); Bun/Creatinine Ratio 13.6 (12.0-20.0); Calcium, Blood 9.3 mg/dL (8.5-10.1); Creatinine, Blood 1.25 mg/dL (0.40-1.00); Globulin, Blood 3.6 g/dL (2.2-4.0); Potassium, Blood 3.8 mmol/L (3.5-5.5); Total Protein, Blood 6.5 g/dL (6.4-8.2)
[2024-09-17 07:16] VITALS: BP 105/63
[2024-09-17] MEDS ORDERED: Furosemide 10 MG/ML 4ML Vial IV SCH (09:00)
--- NOTE | 2024-09-17 11:22 | NUR ---
PHYSICIAN CONTACT CALLED DR LAZO REGARDING ELEVATED TROPONIN OF 1613. ORDERED TO CALL CARDIOLOGY CONSULT AND STATED HE WOULD ORDER HEPARIN DRIP. PATIENT VSS, ON 3 LITERS NC. RECENTLY UP TO BSC FOR VOID. CARDIOLOGY CONSULT CALLED TO DR FARLEY AT 1121.
[2024-09-17 12:24] LABS: Anti-Xa UFH, PHA Monitoring 0.35 IU/mL; International Normalized Ratio 1.12; Prothrombin Time Results 11.9 Sec (9.7-11.5)
[2024-09-17] MEDS ORDERED: Polyethylene Glycol 3350 17 gm PO PRN (12:45)
[2024-09-17] MEDS ORDERED: Albuterol 2.5 MG/3 ML VIAL INH PRN (12:45)
[2024-09-17] MEDS ORDERED: Heparin Sodium,Porcine/0.5 NS 500 ML IV SCH (13:15)
[2024-09-17 14:16] VITALS: BP 101/63
--- NOTE | 2024-09-17 16:15 | NUR ---
PHYSICIAN CONTACT DR LAZO ORDERED TO STOP HEPARIN DRIP AND ASK PHARMACY TO DOSE ELIQUIS FOLLOWING. PHARMACY STATED TO CONTINUE HEPARIN UNITL 1700, THEN ADMINISTER ELIQUIS PER JAN.
--- NOTE | 2024-09-17 16:26 | NUR ---
RETURNED PHONE CALL TO SON AIDEN WHO WAS NOT SPEAKING TO RN IN KIND MANNER, ACCUSED RN OF BEING INCOMPETENT IN SHORT. CONTINUALLY INTERRUPTING RN, WAS ABLE TO UPDATE FAMILY BEST OF THIS RN ABILITY, WILL NOT BE TAKING CALLS FROM THIS FAMILY AGAIN.
--- NOTE | 2024-09-17 16:33 | NUR ---
TELE CALL CALL FROM TELE AT 1345, PATIENT CONVERTED TO A FIB ABOUT 1250. CONVERTED BACK TO SINUS 1621. NO CHANGES TO ASSESSMENT, PATIENT IN ROOM A/O X4, 2 LITERS NC. UP TO BSC
[2024-09-17 16:49] VITALS: BP 101/63
--- NOTE | 2024-09-17 16:58 | NUR ---
CALLED REPORT TO [facility].
[2024-09-17] MEDS ORDERED: Ascorbic Acid 500 MG Tab PO SCH (17:00)
[2024-09-17] MEDS ORDERED: Carvedilol 6.25 MG Tab PO SCH (17:00)
[2024-09-17] MEDS ORDERED: Apixaban 5 MG Tab PO SCH (17:30)
--- NOTE | 2024-09-17 18:22 | NUR ---
SHIFT SUMMARY PATIENT AWAITING [facility] TRANSFER TO [facility]. REPORT CALLED. NO C/O PAIN. CONVERTING BETWEEN NORMAL SINUS AND A FIB ON TELE READINGS PER LAND USE PLANNER. ON 2 LITERS GA, ABLE TO GET TO BSC WITH SBA, REQUIRES MINIMAL ASSISTANCE FOR HYGIENE. A/O X4, PLEASANT MOOD. ABLE TO MAKE NEEDS KNOWN. CALL LIGHT IN REACH, BED ALARM ON. HEPARIN DRIP STOPPED AT 1730 PER PHARMACY. IV TO R AC INTACT, WILL TRANSFER WITH THIS.
[2024-09-17] MEDS ORDERED: Misc. Inhaler INH SCH (21:00)
[2024-09-17] MEDS ORDERED: Docusate Sodium 100 MG Cap PO SCH (21:00)
[2024-09-17] MEDS ORDERED: Amiodarone HCl 200 MG Tab PO SCH (21:00)
[2024-09-17] MEDS ORDERED: Atorvastatin 10 MG Tab PO SCH (21:00)
[2024-09-18] MEDS ORDERED: Pantoprazole Sodium 20 MG Tab PO SCH (06:00)
[2024-09-18] MEDS ORDERED: Cholecalciferol 1000 Unit Tablet (=25MCG) PO SCH (09:00)
[2024-09-18] MEDS ORDERED: Ferrous Sulfate 325 MG Tab PO SCH (09:00)
[2024-09-18] MEDS ORDERED: Citalopram Hydrobromide 20 MG Tab PO SCH (09:00)
== END 2024-09-17 18:38 | disposition short-term general hospital (02) | DRG 280 ==
LOC: ER 14:49 → ERHOLD 21:21 → MEDS 21:21
PROVIDERS: Internal Medicine; Student in an Organized Health Care Education/Training Program; ADMIT Internal Medicine
DX: I13.0 Hypertensive heart and chronic kidney disease with heart failure and stage 1 through stage 4 chronic kidney disease, or unspecified chronic kidney disease (principal); I50.43 Acute on chronic combined systolic (congestive) and diastolic (congestive) heart failure; I21.A1 Myocardial infarction type 2; J96.01 Acute respiratory failure with hypoxia; N39.0 Urinary tract infection, site not specified; I35.0 Nonrheumatic aortic (valve) stenosis; J44.9 Chronic obstructive pulmonary disease, unspecified; I48.91 Unspecified atrial fibrillation; E78.5 Hyperlipidemia, unspecified; N18.30 Chronic kidney disease, stage 3 unspecified; D63.1 Anemia in chronic kidney disease; Z85.3 Personal history of malignant neoplasm of breast; I25.10 Atherosclerotic heart disease of native coronary artery without angina pectoris; Z95.1 Presence of aortocoronary bypass graft; Z79.01 Long term (current) use of anticoagulants; Z79.899 Other long term (current) drug therapy; Z90.89 Acquired absence of other organs; Z90.49 Acquired absence of other specified parts of digestive tract; Z90.13 Acquired absence of bilateral breasts and nipples; Z87.891 Personal history of nicotine dependence
CPT/HCPCS: 36415; 71046; 80053; 81001; 83880; 84484; 85025; 85520; 85610; 85730; 87086; 93005; 93010; 93306; 99285-25; A9270; J0696; J1644; J1940

== ENCOUNTER 2024-09-26 12:30 | Emergency (ER) | payer MEDICARE, OTHER ==
[~2024-09-26] VITALS: Ht 165.1 cm; Wt 90.7 kg
[~2024-09-26 12:30] MED LIST changes: +NS 1,000 ML IV ONE
[2024-09-26 12:54] LABS: Calcium, Ionized (POC) 0.85 mmol/L (1.10-1.46); Chloride (POC) 94 mmol/L (98-108); Creatinine (POC) 1.6 mg/dL (0.6-1.0); Glucose (ISTAT POC) 265 mg/dL (70-99); Hemoglobin (POC) 12.6 g/dL (12.0-16.0); Potassium (POC) 3.5 mmol/L (3.5-5.5); Sodium (POC) 131 mmol/L (135-148); Total CO2 (POC) 27 mmol/L (21-32)
[2024-09-26 13:00] LABS: BASOPHILS ABSOLUTE AUTO 0.22 K/mm3 (0.00-0.23); BASOPHILS PERCENT AUTO 1 % (0-2); EOSINOPHILS ABSOLUTE AUTO 0.23 K/mm3 (0.00-0.68); EOSINOPHILS PERCENT AUTO 1 % (0-6); Hematocrit 35.1 % (33.0-51.0); Hemoglobin 10.8 g/dL (11.5-16.0); IMMATURE GRAN ABSOLUTE AUTO 0.87 K/mm3 (0.00-0.10); IMMATURE GRAN PERCENT AUTO 4 % (0-1); LYMPHOCYTES ABSOLUTE AUTO 4.33 K/mm3 (0.84-5.20); LYMPHOCYTES PERCENT AUTO 21 % (21-46); MONOCYTES ABSOLUTE AUTO 1.62 K/mm3 (0.16-1.47); MONOCYTES PERCENT AUTO 8 % (4-13); Mean Corpuscular HGB 26.7 pg (26.0-34.0); Mean Corpuscular HGB Conc 30.8 g/dL (31.5-36.5); Mean Corpuscular Volume 87 fL (80-100); Mean Platelet Volume 10.6 fL (9.1-12.4); NEUTROPHILS ABSOLUTE AUTO 13.07 K/mm3 (1.96-9.15); NEUTROPHILS PERCENT AUTO 64 % (41-73); NRBC ABSOLUTE 0.02 K/mm3 (0.00-0.02); NRBC Auto 0.1 /100 WBC (0.0-0.2); Platelet Count 509 K/mm3 (150-400); RDW Coefficient Variation 15.8 % (11.7-14.2); Red Blood Cell Count 4.04 M/mm3 (3.80-5.20); White Blood Cell Count 20.34 K/mm3 (4.00-11.30)
[2024-09-26 13:14] LABS: Albumin, Blood 3.3 g/dL (3.4-5.0); Albumin/Globulin Ratio 0.8 (0.8-1.8); Bilirubin, Total 0.8 mg/dL (0.1-1.0); Bun/Creatinine Ratio 15.8 (12.0-20.0); Calcium, Blood 9.5 mg/dL (8.5-10.1); Creatinine, Blood 1.33 mg/dL (0.40-1.00); Globulin, Blood 4.2 g/dL (2.2-4.0); Magnesium, Blood 1.8 mg/dL (1.6-2.4); Potassium, Blood 3.4 mmol/L (3.5-5.5); Total Protein, Blood 7.5 g/dL (6.4-8.2)
[2024-09-26] MEDS ORDERED: Potassium Chl 20MEQ/Water100ML 100 ML IV ONE (13:25)
[2024-09-26 13:26] LABS: Source, Urine Foley catheter
[2024-09-26 13:43] LABS: Appearance, Urine Hazy (Clear); Bilirubin, Urine Neg (Neg); Blood, Urine 5+ (Neg); Color, Urine Yellow (P-Yellow); Glucose Qualitative, Urine Neg (Neg); Ketones, Urine Neg (Neg); Leukocyte Esterase, Urine 1+ (Neg); Nitrite, Urine Neg (Neg); Protein, Urine 4+ (Neg); Urobilinogen, Urine NORM (Normal)
[2024-09-26 14:10] LABS: Bacteria Many /hpf; Red Blood Cells, Urine 25-50 /hpf (0-2); Squamous Epithelial Cells Few /hpf (Few)
[2024-09-26] MEDS ORDERED: propofoL 100 ML IV ONE (14:25)
[2024-09-26] MEDS ORDERED: propofoL 100 ML IV SCH (14:30)
[2024-09-26 14:38] LABS: Base Excess Venous 4.4 mmol/L; Bicarbonate Venous 27.8 mmol/L (24.0-30.0); PCO2 Venous 47.3 mmHg (38-42)
[2024-09-26 15:50] VITALS: BP 118/48
[2024-09-26] MEDS ORDERED: Rocuronium Bromide 10 MG/ML 5ML Injection IV ONE (19:47)
[2024-09-26] MEDS ORDERED: Etomidate 2MG / ML 10ML Vial IV ONE (19:47)
== END 2024-09-26 16:01 | disposition short-term general hospital (02) ==
LOC: ER 12:30
PROVIDERS: Emergency Medicine
DX: I49.01 Ventricular fibrillation (principal); I35.0 Nonrheumatic aortic (valve) stenosis; J44.9 Chronic obstructive pulmonary disease, unspecified; I50.40 Unspecified combined systolic (congestive) and diastolic (congestive) heart failure; Z95.1 Presence of aortocoronary bypass graft; Z87.891 Personal history of nicotine dependence
CPT/HCPCS: 31500; 51702; 71045; 80047; 80053; 81001; 82803; 83605; 83735; 83880; 84484; 85014; 85025; 87086; 93005; 93010; 93308; 93321; 94002; 94640; 94664; 96365-59; 96366-59; 96368; 99291-25; 99292; J0282; J2704; J3480; J7030; J7060